=== PATIENT | female | born 1955 | race Caucasian/White ===

== ENCOUNTER 2016-05-01 08:54 | Day surgery (SDC) | payer MEDICARE ==
[~2016-05-01] VITALS: Ht 157.5 cm; Wt 149.7 kg
[~2016-05-01 08:54] MED LIST: ASCO100083 PO; B CO1CAP PO; BIOTIN PO; CALC-671 PO; CELE200C PO; CHOL100061 PO; DIGO250T PO; FISH400C PO; FURO40TA PO; GLUC-113 PO; HYDR-3816 PO; LISI10TA2 PO; METF500T8 PO; MULT-874 PO; POTA20TA15 PO; PRAV40TA PO; TEMA30CA PO; VITA400T9 PO; WARF5TAB6 PO
[2016-05-01] MEDS ORDERED: ceFAZolin 2 GM/50 ML NS 50 ML IV ONE (09:10)
[2016-05-01 09:24] LABS: MEAN PLATELET VOLUME 10.7 FL (7.4-10.4); RED BLOOD COUNT 5.12 10^6/uL (4.35-5.85); RED CELL DISTRIBUTION WIDTH 14.7 % (10.0-14.5); WHITE BLOOD COUNT 8.4 10^3/uL (4.3-11.0)
[2016-05-01] MEDS ORDERED: CATHETER FLUSH 10 ML SYR IV PRN (09:30)
[2016-05-01] MEDS ORDERED: ceFAZolin 2 GM/NS 50 ML IV ONE (09:30)
[2016-05-01 09:45] LABS: ALANINE AMINOTRANSFERASE 23 U/L (0-55); ALBUMIN 4.1 G/DL (3.2-4.5); ANION GAP 11 MMOL/L (5-14); ASPARTATE AMINO TRANSFERASE 24 U/L (5-34); BILIRUBIN,TOTAL 1.4 MG/DL (0.1-1.0); BLOOD UREA NITROGEN 25 MG/DL (7-18); BUN/CREATININE RATIO 31; CALCIUM 9.5 MG/DL (8.5-10.1); CARBON DIOXIDE 24 MMOL/L (21-32); CHLORIDE 105 MMOL/L (98-107); CHOLESTEROL 198 MG/DL (< 200); CREATININE SERUM 0.81 MG/DL (0.60-1.30); DIRECT LDL 147 MG/DL (1-129); GFR ESTIMATED > 60; GLUCOSE 103 MG/DL (70-105); POTASSIUM 4.4 MMOL/L (3.6-5.0); SODIUM 140 MMOL/L (135-145); TRIGLYCERIDES 149 MG/DL (<150); VLDL CHOLESTEROL 30 MG/DL (5-40)
[2016-05-01] MEDS ORDERED: MONT10TA21 PO (09:58)
[2016-05-01] MEDS ORDERED: ASPI-808 PO (09:58)
[2016-05-01] MEDS ORDERED: CARV6.25 PO (09:58)
--- NOTE | 2016-05-01 09:58 | Progress Note-Pre Operative ---
Pre-Operative Progress Note H&P Reviewed The H&P was reviewed, patient examined and no changes noted. Date H&P Reviewed: May 01, 2016 Time H&P Reviewed: 09:58 Pre-Operative Diagnosis: abscess right cheek AISHWARYA YUSUF MD May 01, 2016 9:58 am
[2016-05-01] MEDS ORDERED: LACTATED RINGERS 1,000 ML IV PRN ×3 (09:59→10:43)
[2016-05-01 10:02] VITALS: BP 140/83
[2016-05-01 10:05] LABS: THYROID STIMULATING HORMONE 1.44 UIU/ML (0.35-4.94)
[2016-05-01] MEDS ORDERED: BUP/EPI 0.25% 1:200,000 (MARCAINE) 30 ML VIAL ONE (10:10)
[2016-05-01] MEDS ORDERED: proPOfol 200 MG/20 ML (DIPRIVAN) VIAL IV ONE (10:12)
[2016-05-01] MEDS ORDERED: LACTATED RINGERS 1,000 ML IV ONE (10:12)
[2016-05-01] MEDS ORDERED: MIDAZOLAM 2 MG/2 ML (VERSED) VIAL ONE (10:12)
--- NOTE | 2016-05-01 10:52 | Progress Note-Post Operative ---
Post-Operative Progess Note Pre-Operative Diagnosis ABSCESS RIGHT CHEEK Post-Operative Diagnosis same Post-Op Procedure Note Date of Procedure: May 01, 2016 Name of Procedure: incision and drainage Anesthesia Type sedation AISHWARYA YUSUF MD May 01, 2016 10:52 am
[2016-05-01] MEDS ORDERED: TRAM50TA2 PO (10:53)
[2016-05-01] MEDS ORDERED: SULF1TAB35 PO (10:54)
--- NOTE | 2016-05-01 10:55 | Discharge Inst-Simple/Standard ---
Discharge Inst-Standard Discharge Medications New, Converted or Re-Newed RX: RX on Chart Patient Instructions/Follow Up Plan of Care/Instructions/FU: change dressing with Adaptic and 4 x 4 daily. Follow-up with my nurse in 10 days Activity as Tolerated: Yes Discharge Diet: No Restrictions AISHWARYA YUSUF MD May 01, 2016 10:54 am
[2016-05-01] MEDS ORDERED: morphine INJ 10 MG/ML 1ML (SYR OR VIAL) ONE (10:59)
[2016-05-01] MEDS ORDERED: morphine INJ 10 MG/ML 1ML (SYR OR VIAL) IV PRN (11:00)
[2016-05-01] MEDS ORDERED: ONDANSETRON 4 MG/2 ML (SDV) Z0FRAN IV ONE (11:00)
[2016-05-01] MEDS ORDERED: diphenhydrAMINE 50 MG/ML INJ (BENADRYL) ONE (11:09)
[2016-05-01] MEDS ORDERED: diphenhydrAMINE 50 MG/ML INJ (BENADRYL) IVP ONE (11:30)
[2016-05-01 11:40] VITALS: BP 107/64
[2016-05-01 12:10] VITALS: BP 126/69
[2016-05-01 12:40] VITALS: BP 117/65
--- NOTE | 2016-05-02 10:25 | OPERATIVE REPORT ---
PROCEDURE PHYSICIAN: AISHWARYA YUSUF DATE OF PROCEDURE: 05/01/2016 PREOPERATIVE DIAGNOSIS: 2 cm abscess right cheek POSTOPERATIVE DIAGNOSIS: 2 cm abscess right cheek OPERATION: Incision and drainage of abscess right cheek. SURGEON: Mane ANESTHESIA: Sedation. BLOOD LOSS: Minimal. FLUIDS: 300 mL of crystalloids. TYPE OF WOUND: Type IV (dirty wound) INDICATION FOR THE PROCEDURE: This lady presented with an acute abscess over the right facial cheek requiring incision and drainage. An informed consent was obtained after reviewing the procedure and the possibility of recurrence and further abscess formation. DESCRIPTION OF PROCEDURE: She was placed supine on the operative table and our RESPOOLER administered sedation. 2 grams of Ancef were administered intravenously. After adequate antiseptic preparation, a 2 cm incision was made and the abscess evacuated. Hemostasis was achieved using cautery. The cavity was irrigated with saline. A nonadherent dressing was then applied. She tolerated the procedure well and was taken back to the nursing area in a stable condition. Job ID: [id number] Dictated Date: 05/01/2016 10:50:00 Certified Orthotist Practice Manager Date: 05/02/2016 10:20:35 / ellen
== END 2016-05-01 13:05 | disposition home or self-care (01) ==
LOC: SDC 08:54
PROVIDERS: ATTEND Surgery
DX: L02.01 Cutaneous abscess of face (principal); Z11.2 Encounter for screening for other bacterial diseases; I10 Essential (primary) hypertension; E78.5 Hyperlipidemia, unspecified; R53.83 Other fatigue; R73.9 Hyperglycemia, unspecified; J44.9 Chronic obstructive pulmonary disease, unspecified; Z79.899 Other long term (current) drug therapy
CPT/HCPCS: 36415; 80053; 80061; 83036; 84439; 84443; 85027; 87081

== ENCOUNTER → 2016-10-31 | Outpatient (CLI) | payer MEDICARE ==
[~2016-10-31] MED LIST changes: +ASPI-808 PO; +CARV6.25 PO; +MONT10TA21 PO; +SULF1TAB35 PO; +TRAM50TA2 PO
[2016-10-31 16:10] LABS: BASOPHILS % (AUTO) 0 % (0-10); EOSINOPHILS # (AUTO) 0.1 10^3/uL (0.0-0.3); EOSINOPHILS % (AUTO) 1 % (0-10); LYMPHOCYTES # (AUTO) 1.9 X 10^3 (1.0-4.0); LYMPHOCYTES % (AUTO) 20 % (12-44); MEAN CORPUSCULAR HEMOGLOBIN 30 PG (25-34); MEAN CORPUSCULAR HGB CONC 30 G/DL (32-36); MEAN CORPUSCULAR VOLUME 100 FL (80-99); MEAN PLATELET VOLUME 10.9 FL (7.4-10.4); MONOCYTES # (AUTO) 0.6 X 10^3 (0.0-1.0); MONOCYTES % (AUTO) 7 % (0-12); NEUTROPHILS # (AUTO) 6.8 X 10^3 (1.8-7.8); NEUTROPHILS % (AUTO) 72 % (42-75); PLATELET COUNT 184 10^3/uL (130-400); RED BLOOD COUNT 5.08 10^6/uL (4.35-5.85); RED CELL DISTRIBUTION WIDTH 14.7 % (10.0-14.5); WHITE BLOOD COUNT 9.5 10^3/uL (4.3-11.0)
[2016-10-31 16:35] LABS: ALANINE AMINOTRANSFERASE 16 U/L (0-55); ALBUMIN 3.8 GM/DL (3.2-4.5); ANION GAP 8 MMOL/L (5-14); ASPARTATE AMINO TRANSFERASE 17 U/L (5-34); BILIRUBIN,TOTAL 1.9 MG/DL (0.1-1.0); BLOOD UREA NITROGEN 18 MG/DL (7-18); BUN/CREATININE RATIO 23; CALCIUM 9.5 MG/DL (8.5-10.1); CARBON DIOXIDE 30 MMOL/L (21-32); CHLORIDE 104 MMOL/L (98-107); GFR ESTIMATED > 60; GLUCOSE 88 MG/DL (70-105); POTASSIUM 4.5 MMOL/L (3.6-5.0); SODIUM 142 MMOL/L (135-145); TOTAL PROTEIN 7.5 GM/DL (6.4-8.2)
[2016-10-31 16:36] LABS: CHOLESTEROL 207 MG/DL (< 200); DIRECT LDL 170 MG/DL (1-129); TRIGLYCERIDES 144 MG/DL (<150); VLDL CHOLESTEROL 29 MG/DL (5-40)
[2016-10-31 16:57] LABS: THYROID STIMULATING HORMONE 2.62 UIU/ML (0.35-4.94)
== END ==
LOC: LAB 15:48
PROVIDERS: ATTEND Family Medicine
DX: I48.0 Paroxysmal atrial fibrillation (principal); R53.83 Other fatigue; J44.9 Chronic obstructive pulmonary disease, unspecified; I27.2 Other secondary pulmonary hypertension
CPT/HCPCS: 36415; 80053; 80061; 84439; 84443; 85025

== ENCOUNTER 2017-08-11 17:09 | Inpatient (IN) | payer MEDICARE ==
[~2017-08-11] VITALS: Ht 160 cm; Wt 156.9 kg
--- OUTSIDE RECORDS SUMMARY | 2017-08-11 17:15 | XMS REPORT | CCD ---
Author Author ANISH OWEN LESELYYeimi Organization Unknown Address [address] [place], [place] [address] Care Team Providers Care Maid Housekeeper Name Role Phone LYNDONVILLE ER, CHRISTIANO DO Attphys LYNDONVILLE ER, CHRISTIANO DO Prisurg Vital Signs Unknown or Not Available. Allergies Allergy Code Allergy Type Reaction Status WELLBUTRIN 11139 Drug allergy Active Procedures Procedure Code Procedure Type Date CX CHEST [address] 03/30/2015 TYPE AND Rh 19154260 SNOMED CT 03/30/2015 .BB FFP 966320445 SNOMED CT 03/30/2015 ^CBC W/AUTO DIFF 3078473 SNOMED CT 03/30/2015 UA W/MICRO C&S IF IND 090736004 SNOMED CT 03/30/[address] 03/30/2015 C REACTIVE PROTEIN 81615528 SNOMED CT 03/30/[address] 03/30/[address] 03/30/2015 CULTURE BLOOD 82838521 SNOMED CT 03/30/2015 CULTURE BLOOD 67311323 SNOMED CT 03/30/2015 COMPREHENSIVE METABOLIC PANEL 863328403 SNOMED CT 2015 CBC W/ AUTO DIFF (RFLX MAN DIFF IF IND) 6020468 SNOMED CT 03/30/2015 History of Immunizations Immunization Code Date Influenza, seasonal, injectable 141 12/17/2010 Problems Unknown or Not Available. Results COMPREHENSIVE METABOLIC PANEL - Collect Date/Time: 03/30/2015 18:40 Test Name Code Test Result Test Units Test Ref Range GLUCOSE 2345-7 110 MG/DL L=70 H=100 SODIUM 2951-2 144 MEQ/L L=135 H=148 POTASSIUM 2823-3 3.7 MEQ/L L=3.5 H=5.3 CHLORIDE 2075-0 103 MEQ/L L=96 H=110 CO2 2028-9 28 MEQ/L L=22 H=29 BUN 3094-0 15 MG/DL L=8 H=22 CREATININE 2160-0 0.7 MG/DL L=0.6 H=1.6 SGOT/AST 1920-8 16 IU/L L=10 H=40 SGPT/ALT 1742-6 15 IU/L L=8 H=54 ALK PHOS 6768-6 84 IU/L L=35 H=115 TOTAL PROTEIN 2885-2 6.9 G/DL L=5.5 H=8.5 ALBUMIN 1751-7 3.8 G/DL L=3.1 H=5.4 TOTAL BILI 1975-2 2.3 MG/DL L=0.0 H=1.5 CALCIUM 02979-7 9.1 MG/DL L=8.2 H=10.6 AGE 60 yrs GFR NonAA 85 GFR AA 103 eGFR >60 N/A eGFR AA* >60 N/A LIPASE - Collect Date/Time: 03/30/2015 18:40 Test Name Code Test Result Test Units Test Ref Range LIPASE 3040-3 16 U/L L=8 H=78 CBC W/ AUTO DIFF (RFLX MAN DIFF IF IND) - Collect Date/Time: 03/30/2015 18:40 Test Name Code Test Result Test Units Test Ref Range WBC 68066-5 9.2 TH/CMM L=4.5 H=10.8 RBC 789-8 4.16 ML/CMM L=4.20 H=5.40 HGB 718-7 13.1 G/DL L=12.0 H=16.0 HCT 4544-3 42.8 % L=37.0 H=47.0 MCV 103 FL L=81 H=99 MCH 31.5 PG L=27.0 H=33.0 MCHC 30.6 G/DL L=31.0 H=36.0 RDW SD 53 FL L=36 H=50 RDW CV 14.5 % L=0.0 H=14.8 MPV 11.1 FL L=9.3 H=12.5 PLT 777-3 234 TH/CMM L=130 H=440 NRBC# 0.00 TH/CMM L=0.00 H=0.00 NRBC% 0.0 /100WBC L=0.0 H=2.0 %NEUT 75.1 % %LYMP 18.1 % %MONO 5.7 % %EOS 0.9 % %BASO 0.2 % #NEUT 6.87 TH/CMM L=2.10 H=8.20 #LYMP 1.66 TH/CMM L=0.90 H=5.20 #MONO 0.52 TH/CMM L=0.16 H=1.00 #EOS 0.08 TH/CMM L=0.00 H=0.80 #BASO 0.02 TH/CMM L=0.00 H=0.20 MANUAL DIFF NOT IND N/A PT/PTT - Collect Date/Time: 03/30/2015 18:40 Test Name Code Test Result Test Units Test Ref Range PROTIME 14677-5 >150.0 SEC L=9.9 H=11.9 INR 14.6 PTT 3173-2 95.5 SEC L=22.2 H=37.2 UA W/MICRO C&S IF IND - Collect Date/Time: 03/30/2015 19:05 Test Name Code Test Result Test Units Test Ref Range COLOR YELLOW N/A NL: YELLOW APPEARANCE CLEAR N/A NL: CLEAR SPEC GRAV 1.015 N/A NL: 1.002 - 1.022 pH 5.5 N/A NL: 5 - 9 PROTEIN NEGATIVE N/A NL: NEGATIVE mg/dl GLUCOSE NEGATIVE N/A NL: NEGATIVE mg/dl KETONE NEGATIVE N/A NL: NEGATIVE mg/dl BILIRUBIN NEGATIVE N/A NL: NEGATIVE BLOOD MODERATE N/A NL: NEGATIVE NITRITE NEGATIVE N/A NL: NEGATIVE LEUK SCREEN NEGATIVE N/A NL: NEGATIVE WBC/HPF 0-5 N/A NL: NEGATIVE RBC/HPF 5-10 N/A NL: NEGATIVE CASTS/LPF NEGATIVE N/A NL: NEGATIVE CRYSTALS TRACE AMORPH N/A NL: NEGATIVE MUCOUS THRDS NEGATIVE N/A NL: NEGATIVE BACTERIA FEW N/A NL: NEGATIVE EPITH CELLS 3+++ SQUAMOUS N/A NL: NEGATIVE TRICHOMONAS NEGATIVE N/A NL: NEGATIVE YEAST NEGATIVE N/A NL: NEGATIVE CULT SET UP? NO N/A .BB FFP - Collect Date/Time: 03/30/2015 20:00 Test Name Code Test Result Test Units Test Ref Range Unit Blood Type A Pos N/A Unit Number [id number] FFP CPD N/A Status Information Ready N/A Product Identification FFP N/A TYPE AND Rh - Collect Date/Time: 03/30/2015 20:00 Test Name Code Test Result Test Units Test Ref Range ABO/Rh Type A Positive N/A BNP - Collect Date/Time: 03/30/2015 18:40 Test Name Code Test Result Test Units Test Ref Range BNP 78297-8 22 PG/ML L=0 H=100 C REACTIVE PROTEIN - Collect Date/Time: 03/30/2015 18:40 Test Name Code Test Result Test Units Test Ref Range C REACTIVE PROTEIN 1988-5 4.3 MG/DL L=0.0 H= 1.0 LACTIC ACID - Collect Date/Time: 03/30/2015 18:40 Test Name Code Test Result Test Units Test Ref Range LACTIC ACID 2524-7 2.0 mmol/L L=0.5 H=1.6 Active Medications Unknown or Not Available. Medications Administered During Visit Unknown or Not Available. Encounters Encounter Diagnosis Diagnosis Code Start Date Abnormal coagulation profile R791 03/30/2015 Social History Smoking Status Code Start Date End Date Current every day smoker [id number] Patient Decision Aids Unknown or Not Available. Discharge Instructions You were admitted to [facility] on 03/30/2015 with a principal diagnosis of Abnormal coagulation profile. You were discharged from [facility] on 03/30/2015. Should you have any questions prior to discharge, please contact a member of your healthcare team. If you have left the hospital and have any questions, please contact your primary care physician. Chief Complaint and Reason For Visit Chief Complaint Date of Onset PRODUCTIVE BLOOD Function Status Unknown or Not Available. Plan of Care Unknown or Not Available. Referral/Transition of Care Unknown or Not Available.
--- OUTSIDE RECORDS SUMMARY | 2017-08-11 17:15 | XMS REPORT | CCD ---
Author Author CHENG COYLE Organization Unknown Address [address] [place], [place] [address] Care Team Providers Care Tax Professional Name Role Phone KIMBERLY HERNANDEZ MD Attphys Vital Signs Unknown or Not Available. Allergies Allergy Code Allergy Type Reaction Status WELLBUTRIN 80372 Drug allergy Active Procedures Procedure Code Procedure Type Date CATARAC PHACOEMULS ASPIR 1341 ICD-9 CM, Volume 3 2014 INSERT LENS AT CATAR EXT 1371 ICD-9 CM, Volume 3 2014 History of Immunizations Immunization Code Date Influenza, seasonal, injectable 141 12/17/2010 Problems Unknown or Not Available. Results Unknown or Not Available. Active Medications Unknown or Not Available. Medications Administered During Visit Unknown or Not Available. Encounters Encounter Diagnosis Diagnosis Code Start Date CATARACT NEC 3668 09/21/2014 Social History Smoking Status Code Start Date End Date Current every day smoker [id number] Patient Decision Aids Patient Decision Aid MARY CATARACT DISMISSAL INSTRUCTIONS Discharge Instructions You were admitted to [facility] on 09/21/2014 with a principal diagnosis of CATARACT NEC. You had the following procedures done: CATARACT SURG W/IOL 1 STAGE INSERT LENS AT CATAR EXT You were discharged from [facility] on 09/21/2014. Should you have any questions prior to discharge, please contact a member of your healthcare team. If you have left the hospital and have any questions, please contact your primary care physician. Chief Complaint and Reason For Visit Chief Complaint Date of Onset EYE CATARACT RT Function Status Unknown or Not Available. Plan of Care Unknown or Not Available. Referral/Transition of Care Unknown or Not Available.
[2017-08-11] MEDS ORDERED: RT-ALBUTEROL/IPRATROPIUM 3 ML (DUONEB) VIAL ONE (17:23)
--- NOTE | 2017-08-11 17:27 | ED General ---
General Stated Complaint: SOB, CELLULITIS Source of Information: Patient Exam Limitations: No Limitations History of Present Illness Date Seen by Provider: Aug 11, 2017 Time Seen by Provider: 17:24 Initial Comments to ER per private vehicle with reports of cellulitis and shortness of breath. She is a patient of Dr. Roach. she also follows with Dr. Barrios from pulmonology in [place] and a professor of biology in [place] as well.She reports cellulitis to the back of the right leg. she also reports increasing shortness of breath. She wears oxygen at 4 L per nasal cannula at home. She states that she was cardioverted by her professor of biology in [place] for intermittent atrial fibrillation last week. She is on Eliquis twice daily. This morning and has not had this evening's dose. she was recently switched to Eliquis from [facility]. She reports coughing up blood today so she called her professor of biology who told her to stop the Eliquis. Timing/Duration: 2-3 Days Severity: Moderate Allergies and Home Medications Allergies Coded Allergies: bupropion (Unverified Allergy, Unknown, RASH, 04/04/14) Home Medications Aspirin 325 Mg Tablet, 325 MG PO DAILY, (Reported) Carvedilol 6.25 Mg Tablet, 6.25 MG PO BID, (Reported) Montelukast Sodium 10 Mg Tablet, 10 MG PO DAILY, (Reported) Sulfamethoxazole/Trimethoprim 1 Each Tablet, 1 EACH PO Q12H Prescribed by: AISHWARYA YUSUF on 05/01/16 1054 Tramadol HCl 50 Mg Tablet, 50 MG PO Q12H PRN for PAIN Prescribed by: AISHWARYA YUSUF on 05/01/16 1053 Patient Home Medication List Home Medication List Reviewed: Yes Review of Systems Constitutional: see HPI EENTM: see HPI Respiratory: no symptoms reported Cardiovascular: no symptoms reported Genitourinary: no symptoms reported Musculoskeletal: no symptoms reported Skin: no symptoms reported Psychiatric/Neurological: No Symptoms Reported Hematologic/Lymphatic: No Symptoms Reported Past Wzlgbeh-Fkqwzx-Zotzbs Hx Patient Social History Type Used: Cigarettes, Electronic/Vapor Former Smoker, Quit: May 08, 2012 Recent Foreign Travel: No Contact w/Someone Who Travel: No Recent Hopitalizations: No Immunizations Up To Date Tetanus Booster (TDap): Unknown Date of Pneumonia Vaccine: Jan 09, 2016 Date of Influenza Vaccine: Jan 09, 2016 Seasonal Allergies Seasonal Allergies: Yes Past Medical History Asthma, COPD Reproductive Disorders: No Loss of Vision: Bilateral Hearing Impairment: Denies Physical Exam Vital Signs Vital Signs - First Documented 08/11/17 08/11/17 17:26 17:40 Temp 96.6 Pulse 55 Resp 35 B/P (MAP) 132/77 (95) Pulse Ox 97 O2 Delivery Nasal Cannula O2 Flow Rate 50.00 Capillary Refill : General Appearance: No Apparent Distress, Moderate Distress, Obese, Other ( oxygen saturation 70% onbaseline 4 L upon arrival to ER.RT was summoned the BiPAP was initiated) HEENT: PERRL/EOMI, TMs Normal Neck: Full Range of Motion, Normal Inspection Respiratory: Normal Breath Sounds, No Accessory Muscle Use, No Respiratory Distress Cardiovascular: Regular Rate, Rhythm, Normal Peripheral Pulses Gastrointestinal: Normal Bowel Sounds, Non Tender, Soft Extremity: Normal Capillary Refill, Normal Inspection, Other (to the posterior right calf there is a home sized area is open with some drainage. 5-10 cm of surrounding erythema around this.) Neurologic/Psychiatric: Alert, Oriented x3 Skin: Normal Color, Warm/Dry Focused Exam Lactate Level 08/11/17 17:27: Lactic Acid Level 1.08 Lactic Acid Level Progress/Results/Core Measures Suspected Sepsis SIRS Temperature: Pulse: Respiratory Rate: Laboratory Tests 08/11/17 17:27: White Blood Count 7.9 Blood Pressure / Mean: 08/11/17 17:27: Lactic Acid Level 1.08 Laboratory Tests 08/11/17 17:27: Creatinine 0.66, Platelet Count 152, Total Bilirubin 2.8H Results/Orders Lab Results Laboratory Tests Test 08/11/17 17:27 08/11/17 19:25 Range/Units White Blood Count 7.9 4.3-11.0 10^3/uL Red Blood Count 4.38 4.35-5.85 10^6/uL Hemoglobin 14.4 11.5-16.0 G/DL Hematocrit 47 35-52 % Mean Corpuscular Volume 106 H 80-99 FL Mean Corpuscular Hemoglobin 33 25-34 PG Mean Corpuscular Hemoglobin Concent 31 L 32-36 G/DL Red Cell Distribution Width 16.0 H 10.0-14.5 % Platelet Count 152 130-400 10^3/uL Mean Platelet Volume 11.1 H 7.4-10.4 FL Neutrophils (%) (Auto) 74 42-75 % Lymphocytes (%) (Auto) 17 12-44 % Monocytes (%) (Auto) 8 0-12 % Eosinophils (%) (Auto) 1 0-10 % Basophils (%) (Auto) 0 0-10 % Neutrophils # (Auto) 5.9 1.8-7.8 X 10^3 Lymphocytes # (Auto) 1.3 1.0-4.0 X 10^3 Monocytes # (Auto) 0.6 0.0-1.0 X 10^3 Eosinophils # (Auto) 0.1 0.0-0.3 10^3/uL Basophils # (Auto) 0.0 0.0-0.1 10^3/uL Sodium Level 147 H 135-145 MMOL/L Potassium Level 4.0 3.6-5.0 MMOL/L Chloride Level 103 98-107 MMOL/L Carbon Dioxide Level 34 H 21-32 MMOL/L Anion Gap 10 5-14 MMOL/L Blood Urea Nitrogen 18 7-18 MG/DL Creatinine 0.66 0.60-1.30 MG/DL Estimat Glomerular Filtration Rate > 60 BUN/Creatinine Ratio 27 Glucose Level 101 70-105 MG/DL Lactic Acid Level 1.08 0.50-2.00 MMOL/L Calcium Level 9.1 8.5-10.1 MG/DL Total Bilirubin 2.8 H 0.1-1.0 MG/DL Aspartate Amino Transf (AST/SGOT) 20 5-34 U/L Alanine Aminotransferase (ALT/SGPT) 26 0-55 U/L Alkaline Phosphatase 69 40-136 U/L B-Type Natriuretic Peptide 1142.4 H <100.0 PG/ML Total Protein 6.6 6.4-8.2 GM/DL Albumin 3.4 3.2-4.5 GM/DL Urine Color YELLOW Urine Clarity CLEAR Urine pH 6 5-9 Urine Specific [place] 1.020 1.016-1.022 Urine Protein 1+ H NEGATIVE Urine Glucose (UA) NEGATIVE NEGATIVE Urine Ketones NEGATIVE NEGATIVE Urine Nitrite NEGATIVE NEGATIVE Urine Bilirubin NEGATIVE NEGATIVE Urine Urobilinogen 1 NORMAL MG/DL Urine Leukocyte Esterase 1+ H NEGATIVE Urine RBC (Auto) 1+ H NEGATIVE Urine RBC RARE /HPF Urine WBC 0-2 /HPF Urine Squamous Epithelial Cells 2-5 /HPF Urine Crystals PRESENT H /LPF Urine Calcium Oxalate Crystals FEW H /LPF Urine Bacteria TRACE /HPF Urine Casts NONE /LPF Urine Mucus LARGE H /LPF Urine Culture Indicated NO My Orders Orders - ATILIO LOPEZ APRN Cbc With Automated Diff (08/11/17 17:21) Comprehensive Metabolic Panel (08/11/17 17:21) Blood Culture (08/11/17 17:21) Lactic Acid Analyzer (08/11/17 17:21) Ua Culture If Indicated (08/11/17 17:21) Chest 1 View, Ap/Pa Only (08/11/17 17:21) Albuterol/Ipra Inhalation Soln (Duoneb I (08/11/17 17:30) Svn Small Volume Nebulizer (08/11/17 17:21) Arterial Blood Gas (08/11/17 17:21) BNP (08/11/17 17:21) Ekg Tracing (08/11/17 17:21) Furosemide Injection (Lasix Injection) (08/11/17 19:00) Us Venous Lower Ext Janusz (08/11/17 18:56) Ct Angio Chest W (08/11/17 19:01) Iohexol Injection (Omnipaque 350 Mg/Ml 1 (08/11/17 19:45) Ns (Ivpb) (Sodium Chloride 0.9% Ivpb Bag (08/11/17 19:45) Piperacillin Sodium/Tazobactam (Zosyn Vi (08/11/17 20:30) Troponin I (08/11/17 21:05) Medications Given in ED Current Medications Medications Dose Ordered Sig/Taina Route Start Time Stop Time Status Last Admin Dose Admin Furosemide 40 mg ONCE ONCE IVP 08/11/17 19:00 08/11/17 19:01 DC 08/11/17 19:05 40 MG Piperacillin Sod/ Tazobactam Sod 4.5 gm/Dextrose 100 ml @ 200 mls/hr ONCE ONCE IV 08/11/17 20:30 08/11/17 20:59 DC 08/11/17 21:08 200 MLS/HR Vital Signs/I&O 08/11/17 08/11/17 17:26 17:40 Temp 96.6 Pulse 55 95 Resp 35 26 B/P (MAP) 132/77 (95) Pulse Ox 97 70 O2 Delivery Nasal Cannula O2 Flow Rate 50.00 4.00 Capillary Refill : Diagnostic Imaging Diagonstic Imaging: Xray Plain Films/CT/US/NM/MRI: chest Comments NAME: PITO EDUARDO [facility] REC#: [id number] PT STATUS: REG ER : 1955 PHYSICIAN: ATILIO LOPEZ APRN ADMIT DATE: 08/11/17/ER Draft Date of Exam:08/11/17 CHEST 1 VIEW, AP/PA ONLY INDICATION: Shortness of breath. TECHNIQUE: Single view chest 5:57 PM. CORRELATION STUDY: 06/29/2015 FINDINGS: Heart size is enlarged. The mediastinum is prominent. Vascularity is overall slightly prominent. Abnormal parenchymal density in the right hilum and infrahilar region may be reflective of an area of infiltrate. IMPRESSION: 1. Suspect for infiltrate or asymmetric edema throughout the right infrahilar region. Cardiac enlargement. Would recommend short-term follow-up 2-view chest imaging for followup assessment. These findings are a change from the prior study. Mass lesion and/or adenopathy not excluded. Dictated on workstation # [id number] Dict: 08/11/17 180 Trans: 08/11/17 1820 [facility] [id number] Interpreted by: HAYLEE CERVANTES DO Electronically signed by: NAME: PITO EDUARDO [facility] REC#: [id number] PT STATUS: REG ER : 1955 PHYSICIAN: ATILIO LOPEZ APRN ADMIT DATE: 08/11/17/ER Draft Date of Exam:08/11/17 US VENOUS LOWER EXT JANUSZ INDICATION: Shortness of breath. Redness and swelling of right leg. FINDINGS: Color Doppler imaging shows normal color flow enhancement from the external iliac vein bilaterally throughout the ankles. Detail is limited due to large body habitus. Calf compression does show augmentation of flow at the popliteal level with Doppler sampling. No evidence of popliteal cyst. IMPRESSION: Limited exam due to body habitus though no evidence of venous thrombosis demonstrated in the lower extremities. Dictated on workstation # [id number] Dict: 08/11/172053 Trans: 08/11/172105 [facility] [id number] Interpreted by: LEXA DO MD Electronically signed by: NAME: PITO EDUARDO [facility] REC#: [id number] PT STATUS: REG ER : 1955 PHYSICIAN: ATILIO LOPEZ APRN ADMIT DATE: 08/11/17/ER Draft Date of Exam:08/11/17 CT ANGIO CHEST W PROCEDURE: CT angiography of the chest with contrast. TECHNIQUE: Multiple contiguous axial images were obtained through the chest after uneventful bolus administration of intravenous contrast. Reconstructed CTA MIP acquisitions were also performed. INDICATION: Shortness of breath. Patient on CPAP. FINDINGS: Good opacification of the aorta and pulmonary arteries. No evidence of aortic aneurysm or dissection. Pulmonary artery show no filling defects to indicate pulmonary emboli. There is a small pleural effusion on the right with mild right basilar atelectasis. There is also atelectasis in the right middle lobe. Mild underlying interstitial lung disease is present. Could not exclude mild pulmonary edema. There is cardiomegaly. No mediastinal or hilar adenopathy of pathologic size. IMPRESSION: 1. There are no findings to suggest pulmonary emboli. 2. Small pleural effusion with bilateral interstitial lung disease could represent underlying pulmonary edema. 3. Atelectasis, right lower lobe and right middle lobe. Dictated on workstation # [id number] Dict: 08/11/172139 Trans: 08/11/172144 [facility] [id number] Interpreted by: LEXA DO MD Electronically signed by: Departure Communication (Admissions) Time/Spoke to Admitting Phy: 20:[address] Roach. She agrees to admit, consult cardiology for the elevated BNP. I have not done a CT angiogram of the chestyet, but given the complaints of dyspnea and hemoptysis I'll do that now. However, she has been on Eliquis for the past few weeks after stopping the Xarelto it would be unlikely to be a Pulmonary embolism. Time/Spoke to Consulting Phy: 21:[address] Pham. He agrees to consult. I've given Lasix40 mg IV,Larkin catheter has been started, she remains on the BiPAP and breathing much more easily area settings are 16/8, 60% FiO2. Much less distress and she is requesting a Pepsi and a meal tray. 2147-initially told Dr. Roach I would place the patient in the ICU. However we do not have any ICU beds according to fish housekeeper so I did give the okay to place the patient on the medical floor. She is still on the bipap, alert and oriented. Impression Primary Impression: Cellulitis of right leg Additional Impression: CHF (congestive heart failure) Disposition: ADMITTED INPATIENT Condition: Stable Admissions Decision to Admit Reason: Admit from ER (General) Decision to Admit/Date: Aug 11, 2017 Time/Decision to Admit Time: 21:14 Departure-Patient Inst. Referrals: DEANN ROACH DO (PCP/Family) Primary Care Physician ATILIO LOPEZ APRN Aug 11, 2017 17:27
[2017-08-11] MEDS ORDERED: RT-ALBUTEROL/IPRATROPIUM 3 ML (DUONEB) VIAL INH ONE (17:30)
[2017-08-11 17:38] LABS: BASOPHILS % (AUTO) 0 % (0-10); EOSINOPHILS # (AUTO) 0.1 10^3/uL (0.0-0.3); EOSINOPHILS % (AUTO) 1 % (0-10); HEMATOCRIT 47 % (35-52); HEMOGLOBIN 14.4 G/DL (11.5-16.0); LYMPHOCYTES # (AUTO) 1.3 X 10^3 (1.0-4.0); LYMPHOCYTES % (AUTO) 17 % (12-44); MEAN CORPUSCULAR HEMOGLOBIN 33 PG (25-34); MEAN CORPUSCULAR HGB CONC 31 G/DL (32-36); MEAN CORPUSCULAR VOLUME 106 FL (80-99); MEAN PLATELET VOLUME 11.1 FL (7.4-10.4); MONOCYTES # (AUTO) 0.6 X 10^3 (0.0-1.0); MONOCYTES % (AUTO) 8 % (0-12); NEUTROPHILS # (AUTO) 5.9 X 10^3 (1.8-7.8); NEUTROPHILS % (AUTO) 74 % (42-75); PLATELET COUNT 152 10^3/uL (130-400); RED BLOOD COUNT 4.38 10^6/uL (4.35-5.85); WHITE BLOOD COUNT 7.9 10^3/uL (4.3-11.0)
[2017-08-11 18:03] LABS: ALANINE AMINOTRANSFERASE 26 U/L (0-55); ALBUMIN 3.4 GM/DL (3.2-4.5); ALKALINE PHOSPHATASE 69 U/L (40-136); BILIRUBIN,TOTAL 2.8 MG/DL (0.1-1.0); BUN/CREATININE RATIO 27; CALCIUM 9.1 MG/DL (8.5-10.1); CARBON DIOXIDE 34 MMOL/L (21-32); CHLORIDE 103 MMOL/L (98-107); CREATININE SERUM 0.66 MG/DL (0.60-1.30); GFR ESTIMATED > 60; GLUCOSE 101 MG/DL (70-105); SODIUM 147 MMOL/L (135-145); TOTAL PROTEIN 6.6 GM/DL (6.4-8.2)
--- NOTE | 2017-08-11 18:21 | Diagnostic Imaging Report ---
INDICATION: Shortness of breath. TECHNIQUE: Single view chest 5:57 PM. CORRELATION STUDY: 06/29/2015 FINDINGS: Heart size is enlarged. The mediastinum is prominent. Vascularity is overall slightly prominent. Abnormal parenchymal density in the right hilum and infrahilar region may be reflective of an area of infiltrate. IMPRESSION: 1. Suspect for infiltrate or asymmetric edema throughout the right infrahilar region. Cardiac enlargement. Would recommend short-term follow-up 2-view chest imaging for followup assessment. These findings are a change from the prior study. Mass lesion and/or adenopathy not excluded. Dictated by: Dictated on workstation # [id number]
[2017-08-11] MEDS ORDERED: FUROSEMIDE 40 MG/4 ML INJ (LASIX) IVP ONE (19:00)
[2017-08-11 19:45] LABS: BILIRUBIN,URINE NEGATIVE (NEGATIVE); CLARITY,URINE CLEAR; COLOR,URINE YELLOW; GLUCOSE, URINE (UA) NEGATIVE (NEGATIVE); KETONES,URINE NEGATIVE (NEGATIVE); LEUKOCYTE ESTERASE ,URINE 1+ (NEGATIVE); NITRITE,URINE NEGATIVE (NEGATIVE); PH,URINE 6 (5-9); PROTEIN,URINE 1+ (NEGATIVE); UROBILINOGEN,URINE 1 MG/DL (NORMAL)
[2017-08-11] MEDS ORDERED: IOHEXOL 350 MG/ML 150 ML (OMNIPAQUE 350) VIAL IV ONE (19:45)
[2017-08-11] MEDS ORDERED: NS 100 ML (IVPB) BAG IV ONE (19:45)
[2017-08-11 19:53] LABS: RBC,URINE RARE /HPF
[2017-08-11 19:54] LABS: BACTERIA,URINE TRACE /HPF; CALCIUM OXALATE CRYSTALS,UR FEW /LPF; WBC,URINE 0-2 /HPF
[2017-08-11] MEDS ORDERED: PIPERACILLIN SODIUM/TAZOBACTAM 4.5 GM in D5W 100 ML IVPB 100 ML IV ONE (20:30)
--- NOTE | 2017-08-11 21:07 | Diagnostic Imaging Report ---
INDICATION: Shortness of breath. Redness and swelling of right leg. FINDINGS: Color Doppler imaging shows normal color flow enhancement from the external iliac vein bilaterally throughout the ankles. Detail is limited due to large body habitus. Calf compression does show augmentation of flow at the popliteal level with Doppler sampling. No evidence of popliteal cyst. IMPRESSION: Limited exam due to body habitus though no evidence of venous thrombosis demonstrated in the lower extremities. Dictated by: Dictated on workstation # [id number]
[2017-08-11 21:44] VITALS: BP 136/86
--- NOTE | 2017-08-11 21:45 | Diagnostic Imaging Report ---
PROCEDURE: CT angiography of the chest with contrast. TECHNIQUE: Multiple contiguous axial images were obtained through the chest after uneventful bolus administration of intravenous contrast. Reconstructed CTA MIP acquisitions were also performed. INDICATION: Shortness of breath. Patient on CPAP. FINDINGS: Good opacification of the aorta and pulmonary arteries. No evidence of aortic aneurysm or dissection. Pulmonary artery show no filling defects to indicate pulmonary emboli. There is a small pleural effusion on the right with mild right basilar atelectasis. There is also atelectasis in the right middle lobe. Mild underlying interstitial lung disease is present. Could not exclude mild pulmonary edema. There is cardiomegaly. No mediastinal or hilar adenopathy of pathologic size. IMPRESSION: 1. There are no findings to suggest pulmonary emboli. 2. Small pleural effusion with bilateral interstitial lung disease could represent underlying pulmonary edema. 3. Atelectasis, right lower lobe and right middle lobe. Dictated by: Dictated on workstation # [id number]
--- NOTE | 2017-08-11 21:57 | Consultation-Cardiology ---
HPI-Cardiology Cardiology Consultation Date of Consultation 08/11/17 Date of Admission Time Seen by Provider: 21:51 Indication: shortness of breath HPI 62 years old lady with history of paroxysmal atrial fibrillation, peripheral arterial disease, questionable hypertension and COPD for which she has been using oxygen up to 4 L, obstructive sleep apnea. Recently she had cellulitis which has been worsening, having discomfort and swelling in her legs. She started having increasing shortness of breath. She underwent electrical cardioversion recently by Dr. Licona in [place]. She was intolerant to oral anticoagulation with hemoptysis and GI bleed, underwent extensive workup at [facility]. On admission she was noted to have elevated BNP. She denied any chest pain. Denied any palpitation. Home Medications & Allergies Allergies: Coded Allergies: bupropion (Unverified Allergy, Unknown, RASH, 04/04/14) Home Medication List Reviewed: Yes [id number]-Lftyyv Hx Patient Social History Alcohol Use: Denies Use Recreational Drug Use: No Smoking Status: Former Smoker Type Used: Cigarettes, Electronic/Vapor Recent Foreign Travel: No Recent Infectious Disease Expo: No Recent Hopitalizations: No Immunizations Up To Date Tetanus Booster (TDap): Unknown Date of Pneumonia Vaccine: Jan 09, 2016 Date of Influenza Vaccine: Jan 09, 2016 Past Medical History Past medical history is discussed below Family Medical History Family Medical Hx Noncontributory to her current condition Constitutional: see HPI, malaise, weakness EENTM: see HPI, no symptoms reported Respiratory: see HPI, cough, dyspnea on exertion, hemoptysis, orthopnea, short of breath Cardiovascular: see HPI; No chest pain; edema; No Hx of Intervention; palpitations; No syncope, No vascular heart diseas, No other Gastrointestinal: no symptoms reported, see HPI Genitourinary: see HPI Musculoskeletal: see HPI, back pain, joint pain, muscle pain Skin: see HPI Psychiatric/Neurological: No Symptoms Reported, See HPI Reviewed Test Results Reviewed Test Results Lab Laboratory Tests Test 08/11/17 17:27 08/11/17 19:25 Range/Units White Blood Count 7.9 4.3-11.0 10^3/uL Red Blood Count 4.38 4.35-5.85 10^6/uL Hemoglobin 14.4 11.5-16.0 G/DL Hematocrit 47 35-52 % Mean Corpuscular Volume 106 H 80-99 FL Mean Corpuscular Hemoglobin 33 25-34 PG Mean Corpuscular Hemoglobin Concent 31 L 32-36 G/DL Red Cell Distribution Width 16.0 H 10.0-14.5 % Platelet Count 152 130-400 10^3/uL Mean Platelet Volume 11.1 H 7.4-10.4 FL Neutrophils (%) (Auto) 74 42-75 % Lymphocytes (%) (Auto) 17 12-44 % Monocytes (%) (Auto) 8 0-12 % Eosinophils (%) (Auto) 1 0-10 % Basophils (%) (Auto) 0 0-10 % Neutrophils # (Auto) 5.9 1.8-7.8 X 10^3 Lymphocytes # (Auto) 1.3 1.0-4.0 X 10^3 Monocytes # (Auto) 0.6 0.0-1.0 X 10^3 Eosinophils # (Auto) 0.1 0.0-0.3 10^3/uL Basophils # (Auto) 0.0 0.0-0.1 10^3/uL Sodium Level 147 H 135-145 MMOL/L Potassium Level 4.0 3.6-5.0 MMOL/L Chloride Level 103 98-107 MMOL/L Carbon Dioxide Level 34 H 21-32 MMOL/L Anion Gap 10 5-14 MMOL/L Blood Urea Nitrogen 18 7-18 MG/DL Creatinine 0.66 0.60-1.30 MG/DL Estimat Glomerular Filtration Rate > 60 BUN/Creatinine Ratio 27 Glucose Level 101 70-105 MG/DL Lactic Acid Level 1.08 0.50-2.00 MMOL/L Calcium Level 9.1 8.5-10.1 MG/DL Total Bilirubin 2.8 H 0.1-1.0 MG/DL Aspartate Amino Transf (AST/SGOT) 20 5-34 U/L Alanine Aminotransferase (ALT/SGPT) 26 0-55 U/L Alkaline Phosphatase 69 40-136 U/L B-Type Natriuretic Peptide 1142.4 H <100.0 PG/ML Total Protein 6.6 6.4-8.2 GM/DL Albumin 3.4 3.2-4.5 GM/DL Urine Color YELLOW Urine Clarity CLEAR Urine pH 6 5-9 Urine Specific Blevins 1.020 1.016-1.022 Urine Protein 1+ H NEGATIVE Urine Glucose (UA) NEGATIVE NEGATIVE Urine Ketones NEGATIVE NEGATIVE Urine Nitrite NEGATIVE NEGATIVE Urine Bilirubin NEGATIVE NEGATIVE Urine Urobilinogen 1 NORMAL MG/DL Urine Leukocyte Esterase 1+ H NEGATIVE Urine RBC (Auto) 1+ H NEGATIVE Urine RBC RARE /HPF Urine WBC 0-2 /HPF Urine Squamous Epithelial Cells 2-5 /HPF Urine Crystals PRESENT H /LPF Urine Calcium Oxalate Crystals FEW H /LPF Urine Bacteria TRACE /HPF Urine Casts NONE /LPF Urine Mucus LARGE H /LPF Urine Culture Indicated NO Physical Exam Vital Signs Vital Signs - First Documented 08/11/17 08/11/17 17:26 17:40 Temp 96.6 Pulse 55 Resp 35 B/P (MAP) 132/77 (95) Pulse Ox 97 O2 Delivery Nasal Cannula O2 Flow Rate 50.00 Capillary Refill : Greater Than 3 Seconds General Appearance: WD/WN, Moderate Distress Eyes: Bilateral Eye Normal Inspection, Bilateral Eye PERRL, Bilateral Eye EOMI HEENT: PERRL/EOMI, TMs Normal, Normal ENT Inspection, Pharynx Normal Neck: Full Range of Motion, Normal Inspection, Non Tender, Supple, Carotid Bruit Respiratory: Chest Non Tender, Normal Breath Sounds, No Accessory Muscle Use, No Respiratory Distress, Crackles Cardiovascular: Regular Rate, Rhythm, No Edema, No Gallop, No JVD, No Murmur, Normal Peripheral Pulses Gastrointestinal: Normal Bowel Sounds, No Organomegaly, No Pulsatile Mass, Non Tender, Soft Back: Normal Inspection, No CVA Tenderness, No Vertebral Tenderness Extremity: Normal Capillary Refill, Normal Inspection, Normal Range of Motion, Non Tender, No Calf Tenderness Neurologic/Psychiatric: Alert, Oriented x3, No Motor/Sensory Deficits, Normal Mood/Affect Skin: Normal Color, Warm/Dry, Erythema Lymphatic: No Adenopathy A/P-Cardiology Admission Diagnosis Shortness of breath Acute exacerbation of COPD Paroxysmal atrial fibrillation Cellulitis Assessment/Plan Shortness of breath, acute excess her ratio of COPD, elevated BNP level, no previous history of heart failure, had a recent FELIPA with electrical cardioversion, responded well to diuretics. I'll try to obtain copy of her records from [facility] and Dr. Licona office. Paroxysmal atrial fibrillation, had recent FELIPA with cardioversion. Continue to monitor EKG at this time. Intolerant to oral anticoagulation with hemoptysis, GI bleed. Seen by senior cytotechnologist and gastroenterologists in [facility], underwent extensive workup. Cellulitis, patient is receiving antibiotics, managed by medical team Hypoxemia, has been using oxygen at home. Obstructive sleep apnea, intolerant to C Pap Obesity, BMI 57. History of peripheral arterial disease, underwent intervention by Dr. Rodriguez on her leg after an injury done about 10 years ago. CHANELLE FENG MD Aug 11, 2017 21:57
[2017-08-11] MEDS ORDERED: ACETAMINOPHEN 325 MG TABLET/CAPLET (TYLENOL) PO PRN (23:15)
[2017-08-12] VITALS (7 sets, daily range): BP systolic 125–146; BP diastolic 59–86
[2017-08-12] MEDS ORDERED: RT-ALBUTEROL/IPRATROPIUM 3 ML (DUONEB) VIAL ONE (02:48)
[2017-08-12] MEDS ORDERED: RT-ALBUTEROL/IPRATROPIUM 3 ML (DUONEB) VIAL INH PRN (03:45)
[2017-08-12 06:00] LABS: HEMOGLOBIN 12.6 G/DL (11.5-16.0); MEAN PLATELET VOLUME 11.2 FL (7.4-10.4); RED BLOOD COUNT 3.98 10^6/uL (4.35-5.85); WHITE BLOOD COUNT 5.6 10^3/uL (4.3-11.0)
[2017-08-12] MEDS: FUROSEMIDE 40 MG/4 ML INJ (LASIX) IV SCH (06:04)
[2017-08-12 06:22] LABS: ALANINE AMINOTRANSFERASE 20 U/L (0-55); ALKALINE PHOSPHATASE 57 U/L (40-136); BILIRUBIN,TOTAL 2.6 MG/DL (0.1-1.0); BUN/CREATININE RATIO 21; CALCIUM 8.7 MG/DL (8.5-10.1); CARBON DIOXIDE 37 MMOL/L (21-32); CHLORIDE 98 MMOL/L (98-107); CREATININE SERUM 0.66 MG/DL (0.60-1.30); GFR ESTIMATED > 60; GLUCOSE 74 MG/DL (70-105); POTASSIUM 3.3 MMOL/L (3.6-5.0); SODIUM 147 MMOL/L (135-145); TOTAL PROTEIN 5.5 GM/DL (6.4-8.2)
[2017-08-12] MEDS: RT-ALBUTEROL/IPRATROPIUM 3 ML (DUONEB) VIAL INH SCH ×5 (06:48→22:37)
[2017-08-12] MEDS: HYDROcodone/APAP 7.5 MG/325 MG (LORTAB, LORCET PLUS) TABLET PO PRN (06:52)
[2017-08-12] MEDS ORDERED: ENOXAPARIN 40 MG/0.4 ML (LOVENOX) SYR SC SCH (09:00)
[2017-08-12] MEDS ORDERED: VANCOMYCIN 1 GM/NS 250 ML IVPB IV SCH ×2 (09:00)
--- NOTE | 2017-08-12 09:52 | Diagnostic Imaging Report ---
Indication: Cellulitis and hypoxia with standing. Comparison made with prior examination of 08/11/2017. Findings: There is cardiomegaly. There is some venous congestion. Some bibasilar atelectasis and/or pneumonitis. No pleural effusion or pneumothorax. Mediastinum unremarkable. Impression: Bibasilar subsegmental atelectasis and/or pneumonitis. Cardiomegaly and mild venous congestion. Dictated by: Dictated on workstation # [id number]
[2017-08-12] MEDS ORDERED: CARV6.252 PO (10:30)
[2017-08-12] MEDS ORDERED: MONT10TA24 PO (10:30)
[2017-08-12] MEDS ORDERED: SERT50TA9 PO (10:30)
[2017-08-12] MEDS: ENOXAPARIN 60 MG/0.6 ML (LOVENOX) SYR SC SCH ×2 (10:38→20:33)
[2017-08-12] MEDS: VANCOMYCIN 2000 MG/NS 500 ML IVPB IV SCH ×4 (10:38→20:34)
[2017-08-12] MEDS ORDERED: PANT40TA3 PO (10:39)
[2017-08-12] MEDS ORDERED: AMIO200T2 PO (10:39)
[2017-08-12] MEDS ORDERED: RANI150T11 PO (10:39)
[2017-08-12] MEDS ORDERED: MAGNESIUM OXIDE (MAG-OX)400 MG TAB PO NR (11:15)
[2017-08-12] MEDS ORDERED: KCL 20 MEQ TAB (K-DUR) PO NR (11:15)
[2017-08-12] MEDS ORDERED: CELE200C PO (11:45)
[2017-08-12] MEDS ORDERED: HYDR-3820 PO (11:45)
[2017-08-12] MEDS ORDERED: CELECOXIB 100 MG (CeleBREX) CAP PO PRN (13:00)
[2017-08-12] MEDS: ACYCLOVIR INJECTION 500 MG in NS (IVPB) 250 ML IV SCH ×2 (16:08→20:34)
--- NOTE | 2017-08-12 16:59 | Cardiology Progress Note ---
Subjective Date Seen by Provider: Aug 12, 2017 Time Seen by Provider: 16:57 Subjective/Events-last exam Patient is in bed, still having shortness of breath, refusing bipap, no chest pain Review of Systems General: No Chills, No Night Sweats, No Fatigue, No Malaise, No Appetite, No Other HEENT: No Head Aches, No Visual Changes, No Eye Pain, No Ear Pain, No Dysphasia , No Sinus Congestion, No Post Nasal Drip, No Sore Throat, No Other Pulmonary: Dyspnea, Cough; No Pleuritic Chest Pain, No Other Cardiovascular: Edema; No: Chest Pain, Palpitations, Orthopnea, Paroxysmal Noc. Dyspnea, Lt Headedness, Other Focused Exam Lactate Level 08/11/17 17:27: Lactic Acid Level 1.08 Objective-Cardiology Exam Last Set of Vital Signs Vital Signs 08/11/17 08/12/17 22:35 16:47 Temp 99.5 Pulse 80 Resp 20 B/P (MAP) 132/60 (84) Pulse Ox 97 O2 Delivery OxyMask O2 Flow Rate 8.00 FiO2 60 Capillary Refill : Less Than 3 Seconds I&O Intake and Output 08/12/17 00:00 Daily Weight Change No General: Alert, Oriented X3, Cooperative HEENT: Atraumatic, PERRLA Neck: Supple Lungs: Clear to Auscultation Heart: Regular Rate, Normal S1, Normal S2 Abdomen: Normal Bowel Sounds Extremities: No Clubbing, No Cyanosis Skin: Other (Cellulitis) Results Lab Laboratory Tests 08/11/17 17:27 08/12/17 05:29 A/P-Cardiology Admission Diagnosis Shortness of breath Acute exacerbation of COPD Paroxysmal atrial fibrillation Cellulitis Assessment/Plan Shortness of breath, acute since elevation of COPD, elevated BNP level, no previous history of heart failure, had a recent FELIPA with electrical cardioversion, responded well to diuretics. Records are still pending, patient is reporting improvement. Recurrent hemoptysis, intolerant to anticoagulation, seen by crepe box tender and gastroenterologists in [facility], underwent extensive workup, I'll try to obtain copy of the results. Consult Dr. Jones Paroxysmal atrial fibrillation, had recent FLEIPA with cardioversion. Continue to monitor EKG at this time. Cellulitis, questionable shingles, Dr. Gomez was consulted, managed by primary care team Hypoxemia, has been using oxygen at home, refusing BiPAP. On x-rays liters oxygen Obstructive sleep apnea, intolerant to C Pap Obesity, BMI 57. History of peripheral arterial disease, underwent intervention by Dr. Rodriguez on her leg after an injury done about 10 years ago. Clinical Quality Measures DVT/VTE Risk/Contraindication: Risk Factor Score Per Nursin RFS Level Per Nursing on Admit: 4+=Very High CHANELLE FENG MD Aug 12, 2017 16:59
[2017-08-12] MEDS: MAGNESIUM OXIDE (MAG-OX)400 MG TAB PO SCH (20:11)
--- NOTE | 2017-08-12 20:22 | History & Physicial ---
History of Present Illness History of Present Illness Reason for visit/HPI This is a 62 year old female who had underwent cardioversion by Dr. Boyd at [place] approximately 1 week ago. At that time she had cellulitis on her right lower leg and was started on amoxil. However, her leg was not improving but worsening and she became more short of air. She was sent to the emergency room where she was found to be hypoxic even with 4 liters of NC in place. She was found to have bilateral pulmonary edema with an elevated BNP. She was also found to have cellulitis of her right posterior calf. She was given IV lasix and started on BIPAP and was admitted for further evaluation and treatment. Date of Admission Aug 11, 2017 at 9:51 pm Date Seen by Provider: Aug 12, 2017 Time Seen by Provider: 12:30 I consulted on this patient on 08/12/17 20:16 Attending Physician Monik Roach DO Admitting Physician Monik Roach DO Consult Allergies and Home Medications Allergies Coded Allergies: bupropion (Unverified Allergy, Unknown, RASH, 04/04/14) Home Medications Amiodarone HCl 200 Mg Tablet, PO UD, (Reported) TAKE 2 TABS TWICE DAILY X 7 DAYS THEN TAKE 1 TAB DAILY THERAFTER, FILLED 07-31 Carvedilol 6.25 Mg Tablet, 6.25 MG PO BID, (Reported) Celecoxib 200 Mg Capsule, 200 MG PO BID PRN for KNEE PAIN, (Reported) Hydrocodone/Acetaminophen 1 Each Tablet, 1 TAB PO Q4H PRN for PAIN-MODERATE, ( Reported) Montelukast Sodium 10 Mg Tablet, 10 MG PO DAILY, (Reported) Pantoprazole Sodium 40 Mg Tablet.dr, 40 MG PO DAILY, (Reported) Ranitidine HCl 150 Mg Tablet, 150 MG PO BID, (Reported) 7 DAY THERAPY FILLED 08-05-17 Sertraline HCl 50 Mg Tablet, 50 MG PO DAILY, (Reported) Patient Home Medication List Home Medication List Reviewed: Yes Past Vptnvtv-Blesnj-Qttopr Hx Patient Social History Alcohol Use: Denies Use Number of Drinks Today: AA Recreational Drug Use: No Smoking Status: Former Smoker Former Smoker, Quit: May 08, 2012 Type Used: Cigarettes, Electronic/Vapor Physical Abuse Screen: No Sexual Abuse: No Recent Foreign Travel: No Contact w/other who traveled: No Recent Hopitalizations: No Recent Infectious Disease Expo: No Immunizations Up To Date Tetanus Booster (TDap): Unknown Date of Pneumonia Vaccine: Jan 09, 2016 Date of Influenza Vaccine: Jan 09, 2016 Seasonal Allergies Seasonal Allergies: Yes Surgeries Yes (LEFT TKR, REPAIR ARTERIES/VEINS BEHIND LT KNEE, HEART CATH) Gallbladder, Vascular Surgery Respiratory Yes (WEARS O2 @ 4L PER N/C) Cardiovascular Yes Atrial Fibrillation, Deep Vein Thrombosis Neurological No Reproductive System Hx Reproductive Disorders: No Sexually Transmitted Disease: Yes Genitourinary Yes (overactive bladder) Gastrointestinal Yes Gastroesophageal Reflux Musculoskeletal Yes (BAD KNEES) Arthritis Endocrine History of Endocrine Disorders: No HEENT History of HEENT Disorders: Yes (bilat cataract taken out) HEENT Disorders: Cataract Loss of Vision: Denies Hearing Impairment: Denies Cancer Yes Skin Did You Recieve Any Treatments: Yes Type of Treatment: Surgical Intervention Psychosocial History of Psychiatric Problem: No Integumentary History of Skin or Integumenta: Yes (ABCESS ON RIGHT CHEEK) Blood Transfusions History of Blood Disorders: Yes (TAKES COREG) Family Medical History Family Hx: FH: atrial fibrillation 19 MOTHER FH: lung cancer 19 FATHER Constitutional: weakness, weight gain EENTM: No see HPI, No no symptoms reported, No ear discharge, No hearing loss, No ear pain, No blurred vision, No double vision, No eye pain, No tearing, No vision loss, No dental problems, No hoarseness, No mouth pain, No mouth swelling , No epistaxis, No nose congestion, No nose pain, No throat pain, No throat swelling, No other Respiratory: cough, dyspnea on exertion, short of breath Cardiovascular: edema Gastrointestinal: No RUQ, No LUQ, No RLQ, No LLQ, No no symptoms reported, No see HPI, No abdominal pain, No constipation, No diarrhea, No dysphagia, No hematemesis, No heartburn, No jaundice, No loss of appetite, No melena, No nausea, No vomiting, No other Genitourinary: No no symptoms reported, No see HPI, No decreased output, No discharge, No dysuria, No frequency, No hematuria, No hesitancy, No incontinence , No nocturia, No pain, No other Musculoskeletal: back pain Skin: other (cellulitis of right lower leg) Psychiatric/Neurological: Weakness, Other (burning to right leg cellulitis area ) Physical Exam Vital Signs Vital Signs - First Documented 08/11/17 08/11/17 08/11/17 17:26 17:40 22:35 Temp 96.6 Pulse 55 Resp 35 B/P (MAP) 132/77 (95) Pulse Ox 97 O2 Delivery Nasal Cannula O2 Flow Rate 50.00 FiO2 60 Capillary Refill : Less Than 3 Seconds General Appearance: Moderate Distress Neck: Supple Respiratory: Crackles, Decreased Breath Sounds, Respiratory Distress Cardiovascular: Regular Rate, Rhythm, Systolic Murmur, Gallop/S4 Gastrointestinal: Normal Bowel Sounds, Non Tender, Soft Rectal: Deferred Back: No CVA Tenderness Extremity: Non Tender, Inflammation (right posterior calf), Pedal Edema Neurologic/Psychiatric: Alert, Oriented x3 Skin: Other (right posterior calf with ulcerative lesions with surrounding erythema) Comments Laboratory Tests 08/12/17 05:29: White Blood Count 5.6, Red Blood Count 3.98L, Hemoglobin 12.6, Hematocrit 42, Mean Corpuscular Volume 105H, Mean Corpuscular Hemoglobin 32, Mean Corpuscular Hemoglobin Concent 30L, Red Cell Distribution Width 16.0H, Platelet Count 141, Mean Platelet Volume 11.2H, Sodium Level 147H, Potassium Level 3.3L, Chloride Level 98, Carbon Dioxide Level 37H, Anion Gap 12, Blood Urea Nitrogen 14, Creatinine 0.66, Estimat Glomerular Filtration Rate > 60, BUN/Creatinine Ratio 21, Glucose Level 74, Calcium Level 8.7, Total Bilirubin 2.6H, Aspartate Amino Transf (AST/SGOT) 16, Alanine Aminotransferase (ALT/SGPT) 20, Alkaline Phosphatase 57, B-Type Natriuretic Peptide 604.1H, Total Protein 5.5L, Albumin 3.0L Microbiology 08/11/17 Blood Culture - Preliminary, Resulted No growth Assessment/Plan Assessment and Plan 1. Acute Respiratory Failure with Hypoxia--admit on BIPAP 2. Pulmonary Edema--Acute on Chronic Diastolic Congestive Heart Failure--admit on IV lasix 3. COPD--start SVNS 4. Right Lower Extremity Shingles with secondary infection--start IV acyclovir and monitor redness, will DC antibiotics tomorrow if WBC count stable/afebrile and no worsening erythema 5. Paroxysmal Atrial Fibrillation--S/P cardioversion--cover with lovenox and resume home meds and consult cardiology Admission Diagnosis Admission Status: Inpatient Order (span 2 midnights) Reason for Inpatient Admission: Will require BIPAP and at least 48hrs of IV antibiotics Clinical Quality Measures DVT/VTE Risk/Contraindication: Risk Factor Score Per Nursin RFS Level Per Nursing on Admit: 4+=Very High MONIK ROACH DO Aug 12, 2017 8:22 pm
[2017-08-12] MEDS: FAMOTIDINE 20 MG (PEPCID) TABLET PO SCH (20:33)
[2017-08-12] MEDS: CARVEDILOL 6.25 MG (COREG) TAB PO SCH (20:43)
[2017-08-12] MEDS: cefTRIAXone 1 GM/NS 50 ML IVPB IV SCH ×2 (23:14)
[2017-08-13 00:19] VITALS: BP 131/79
[2017-08-13] MEDS: RT-ALBUTEROL/IPRATROPIUM 3 ML (DUONEB) VIAL INH SCH ×6 (03:21→22:27)
[2017-08-13] MEDS: HYDROcodone/APAP 7.5 MG/325 MG (LORTAB, LORCET PLUS) TABLET PO PRN ×2 (03:52→18:47)
[2017-08-13 04:48] VITALS: BP 137/68
[2017-08-13 06:10] LABS: BASOPHILS % (AUTO) 0 % (0-10); EOSINOPHILS # (AUTO) 0.1 10^3/uL (0.0-0.3); EOSINOPHILS % (AUTO) 2 % (0-10); HEMATOCRIT 41 % (35-52); HEMOGLOBIN 12.9 G/DL (11.5-16.0); LYMPHOCYTES # (AUTO) 1.1 X 10^3 (1.0-4.0); LYMPHOCYTES % (AUTO) 19 % (12-44); MEAN CORPUSCULAR HEMOGLOBIN 33 PG (25-34); MEAN CORPUSCULAR HGB CONC 31 G/DL (32-36); MEAN CORPUSCULAR VOLUME 105 FL (80-99); MEAN PLATELET VOLUME 11.1 FL (7.4-10.4); MONOCYTES # (AUTO) 0.5 X 10^3 (0.0-1.0); MONOCYTES % (AUTO) 9 % (0-12); NEUTROPHILS % (AUTO) 70 % (42-75); PLATELET COUNT 131 10^3/uL (130-400); RED BLOOD COUNT 3.93 10^6/uL (4.35-5.85); RED CELL DISTRIBUTION WIDTH 15.9 % (10.0-14.5); WHITE BLOOD COUNT 5.7 10^3/uL (4.3-11.0)
[2017-08-13] MEDS: FUROSEMIDE 40 MG/4 ML INJ (LASIX) IV SCH (06:19)
[2017-08-13] MEDS: KCL 20 MEQ TAB (K-DUR) PO SCH (06:19)
[2017-08-13] MEDS: ACYCLOVIR INJECTION 500 MG in NS (IVPB) 250 ML IV SCH ×3 (06:20→21:18)
[2017-08-13 06:36] LABS: ALANINE AMINOTRANSFERASE 19 U/L (0-55); ALBUMIN 2.9 GM/DL (3.2-4.5); ALKALINE PHOSPHATASE 57 U/L (40-136); BILIRUBIN,TOTAL 2.4 MG/DL (0.1-1.0); BUN/CREATININE RATIO 18; CALCIUM 8.7 MG/DL (8.5-10.1); CARBON DIOXIDE 39 MMOL/L (21-32); CHLORIDE 97 MMOL/L (98-107); GFR ESTIMATED > 60; GLUCOSE 92 MG/DL (70-105); POTASSIUM 3.7 MMOL/L (3.6-5.0); SODIUM 145 MMOL/L (135-145); TOTAL PROTEIN 5.6 GM/DL (6.4-8.2)
[2017-08-13 07:34] LABS: ABG OXYGEN SATURATION 96 % (94-100); ABG PCO2 67 MMHG (35-45); ABG PH 7.44 (7.37-7.43); ABG PO2 78 MMHG (79-93); ABG TCO2 46.8 MMOL/L (21.0-31.0)
[2017-08-13 07:36] LABS: ALLENS TEST YES-POS; INSPIRED O2 100%; VENTILATOR NO
[2017-08-13] MEDS ORDERED: TROUGH ORDER-PHARMACY XX ONE (08:00)
--- NOTE | 2017-08-13 08:03 | Pulmonary Consultation ---
History of Present Illness History of Present Illness Date of Consultation 08/13/17 07:57 Time Seen by Provider: 07:57 Date of Admission Reason for Visit: shortness of breath History of Present Illness 62yo morbidly obese patient with hx of ARCHIE and noncompliant with CPAP therapy. SHe has been seeing Dr. Pineda in [place] however Dr. Pham stats pt wants to establish care with me. She has been having worsening SOB and is requiring increasing amounts of oxygen. CT of chest is negative for PE however she has bilateral R>L pleural effusions. She is on 40mg of lasix daily. ABG shows resp/ metabolic acidosis. Allergies and Home Medications Allergies Coded Allergies: bupropion (Unverified Allergy, Unknown, RASH, 04/04/14) Home Medications Amiodarone HCl 200 Mg Tablet, PO UD, (Reported) TAKE 2 TABS TWICE DAILY X 7 DAYS THEN TAKE 1 TAB DAILY THERAFTER, FILLED 07-31 Carvedilol 6.25 Mg Tablet, 6.25 MG PO BID, (Reported) Celecoxib 200 Mg Capsule, 200 MG PO BID PRN for KNEE PAIN, (Reported) Hydrocodone/Acetaminophen 1 Each Tablet, 1 TAB PO Q4H PRN for PAIN-MODERATE, ( Reported) Montelukast Sodium 10 Mg Tablet, 10 MG PO DAILY, (Reported) Pantoprazole Sodium 40 Mg Tablet.dr, 40 MG PO DAILY, (Reported) Ranitidine HCl 150 Mg Tablet, 150 MG PO BID, (Reported) 7 DAY THERAPY FILLED 08-05-17 Sertraline HCl 50 Mg Tablet, 50 MG PO DAILY, (Reported) Past Ouuckoj-Syngos-Akaheh Hx Patient Social History Alcohol Use: Denies Use Number of Drinks Today: AA Recreational Drug Use: No Smoking Status: Former Smoker Type Used: Cigarettes, Electronic/Vapor Former Smoker, Quit: May 08, 2012 Recent Foreign Travel: No Contact w/Someone Who Travel: No Recent Infectious Disease Expo: No Recent Hopitalizations: No Physical Abuse: No Sexual Abuse: No Mistreated: No Fear: No Immunizations Up To Date Tetanus Booster (TDap): Unknown Date of Pneumonia Vaccine: Jan 09, 2016 Date of Influenza Vaccine: Jan 09, 2016 Seasonal Allergies Seasonal Allergies: Yes Past Medical History Surgeries: Yes (LEFT TKR, REPAIR ARTERIES/VEINS BEHIND LT KNEE, HEART CATH) Gallbladder, Vascular Surgery Respiratory: Yes (WEARS O2 @ 4L PER N/C) Asthma, Sleep Apnea, COPD Cardiac: Yes Atrial Fibrillation, Deep Vein Thrombosis Neurological: No Reproductive Disorders: No Sexually Transmitted Disease: Yes Genitourinary: Yes (overactive bladder) Gastrointestinal: Yes Gastroesophageal Reflux Musculoskeletal: Yes (BAD KNEES) Arthritis Endocrine: No HEENT: Yes (bilat cataract taken out) Cataract Loss of Vision: Denies Hearing Impairment: Denies Cancer: Yes Skin Did You Recieve Any Treatments: Yes What Type of Treatment Did You: Surgical Intervention Psychosocial: No Nursing Suicide Risk Score: 0 Integumentary: Yes (ABCESS ON RIGHT CHEEK) Blood Disorders: Yes (TAKES COREG) Family Medical History FH: atrial fibrillation 19 MOTHER FH: lung cancer 19 FATHER Review of Systems Time Seen by Provider: 08:03 Exam Exam Vital Signs Date Time Temp Pulse Resp B/P (MAP) Pulse Ox O2 Delivery O2 Flow Rate FiO2 08/13/17 07:33 69 OxyMask 10.00 08/13/17 04:48 97.6 75 19 137/68 (91) 89 OxyMask 7.00 08/13/17 03:21 88 OxyMask 10.00 08/13/17 01:00 73 08/13/17 00:19 97.9 84 19 131/79 (96) 88 OxyMask 7.00 08/12/17 22:37 91 OxyMask 10.00 08/12/17 21:00 91 OxyMask 6.50 08/12/17 19:25 86 OxyMask 8.00 08/12/17 19:23 98.9 86 22 134/65 (88) OxyMask 7.00 08/12/17 19:00 81 08/12/17 16:47 99.5 80 20 132/60 (84) 97 OxyMask 8.00 08/12/17 14:32 90 OxyMask 8.00 08/12/17 13:00 77 08/12/17 12:00 97.9 78 18 140/65 (90) 90 OxyMask 8.00 08/12/17 11:04 89 Nasal Cannula 7.00 08/12/17 09:50 91 OxyMask 6.50 08/12/17 08:27 98.0 73 22 146/75 (98) 90 OxyMask 7.00 I & O 08/13/17 07:00 Intake Total 2962 ml Output Total 5000 ml Balance -2038 ml General Appearance: Moderate Distress HEENT: PERRL/EOMI, TMs Normal, Normal ENT Inspection, Pharynx Normal Neck: Supple Respiratory: Crackles, Decreased Breath Sounds, Respiratory Distress Cardiovascular: Regular Rate, Rhythm, Systolic Murmur, Gallop/S4 Capillary Refill: Less Than 3 Seconds Extremity: Non Tender, Inflammation (right posterior calf), Pedal Edema Neurologic/Psychiatric: Alert, Oriented x3 Skin: Other (right posterior calf with ulcerative lesions with surrounding erythema) Lymphatic: No Adenopathy Results Lab Laboratory Tests 08/11/17 17:27 08/12/17 05:29 08/13/17 05:51 Assessment/Plan Assessment/Plan Acute on chronic respiratory failure -noninvasive ventilation -SVNs, oxygen therapy Acute pulmonary edema with pleural effusions -Continue Lasix and give an extra dose of 40mg of IV Lasix Morbid obesity with OHS -Pt will benefit from home vent to mask debility Atelectasis -Increase activity 255 TARUN SANDOVAL DO Aug 13, 2017 08:03
--- NOTE | 2017-08-13 08:30 | Cardiology Progress Note ---
Subjective Date Seen by Provider: Aug 13, 2017 Time Seen by Provider: 08:28 Subjective/Events-last exam Patient is laying down in bed, complaining of shortness of breath, slightly better than yesterday. No chest pain. Review of Systems General: No Chills, No Night Sweats, No Fatigue, No Malaise, No Appetite, No Other HEENT: No Head Aches, No Visual Changes, No Eye Pain, No Ear Pain, No Dysphasia , No Sinus Congestion, No Post Nasal Drip, No Sore Throat, No Other Pulmonary: Dyspnea; No Cough, No Pleuritic Chest Pain, No Other Cardiovascular: Edema; No: Chest Pain, Palpitations, Orthopnea, Paroxysmal Noc. Dyspnea, Lt Headedness, Other Focused Exam Lactate Level 08/11/17 17:27: Lactic Acid Level 1.08 Objective-Cardiology Exam Last Set of Vital Signs Vital Signs 08/11/17 08/13/17 08/13/17 22:35 04:48 07:33 Temp 97.6 Pulse 75 Resp 19 B/P (MAP) 137/68 (91) Pulse Ox 69 O2 Delivery OxyMask O2 Flow Rate 10.00 FiO2 60 Capillary Refill : Less Than 3 Seconds I&O Intake and Output 08/13/17 00:00 Intake Total 3362 ml Output Total 8550 ml Balance -5188 ml Intake Oral 2582 ml IV Total 780 ml Output Urine Total 8550 ml # Bowel Movements 1 General: Alert, Oriented X3, Cooperative HEENT: Atraumatic, PERRLA Neck: Supple Lungs: Normal Air Movement Heart: Regular Rate, Normal S1, Normal S2 Abdomen: Normal Bowel Sounds Extremities: No Clubbing, No Cyanosis Skin: No Rashes, Other (Cellulitis) Neuro: Normal Speech Results Lab Laboratory Tests 08/13/17 05:51 A/P-Cardiology Admission Diagnosis Shortness of breath Acute exacerbation of COPD Paroxysmal atrial fibrillation Cellulitis Assessment/Plan Shortness of breath, acute since elevation of COPD, elevated BNP level, no previous history of heart failure, had a recent FELIPA with electrical cardioversion, responded well to diuretics. Continue with diuretics. Congestive heart failure, acute on chronic left ventricular diastolic dysfunction, normal systolic function. Continue on diuretics and monitor. Pleural effusion, COPD, obesity hypoventilation syndrome with severe pulmonary hypertension. Consult Dr. Jones. Recurrent hemoptysis, intolerant to anticoagulation, seen by bell clerk and gastroenterologists in [facility], underwent extensive workup, I'll try to obtain copy of the results. Consult Dr. Jones Paroxysmal atrial fibrillation, had recent FELIPA with cardioversion. Continue to monitor EKG at this time. Cellulitis, questionable shingles, Dr. Gomez was consulted, managed by primary care team Hypoxemia, has been using oxygen at home, refusing BiPAP. On x-rays liters oxygen Obstructive sleep apnea, intolerant to C Pap Obesity, BMI 57. History of peripheral arterial disease, underwent intervention by Dr. Rodriguez on her leg after an injury done about 10 years ago. Clinical Quality Measures DVT/VTE Risk/Contraindication: Risk Factor Score Per Nursin RFS Level Per Nursing on Admit: 4+=Very High CHANELLE FENG MD Aug 13, 2017 08:30
[2017-08-13 08:31] VITALS: BP 126/63
[2017-08-13] MEDS ORDERED: FUROSEMIDE 40 MG/4 ML INJ (LASIX) IVP NR (08:45)
[2017-08-13] MEDS: PANTOPRAZOLE 40 MG (PROTONIX) TAB PO SCH (09:19)
[2017-08-13] MEDS: FAMOTIDINE 20 MG (PEPCID) TABLET PO SCH ×2 (09:19→21:18)
[2017-08-13] MEDS: MAGNESIUM OXIDE (MAG-OX)400 MG TAB PO SCH ×2 (09:19→18:47)
[2017-08-13] MEDS: ENOXAPARIN 60 MG/0.6 ML (LOVENOX) SYR SC SCH ×2 (09:19→21:17)
[2017-08-13] MEDS: CARVEDILOL 6.25 MG (COREG) TAB PO SCH ×2 (09:20→21:17)
[2017-08-13] MEDS: MONTELUKAST 10 MG (SINGULAIR) TAB PO SCH (09:20)
[2017-08-13] MEDS: SERTRALINE 50 MG (ZOLOFT) TABLET PO SCH (09:20)
[2017-08-13] MEDS: VANCOMYCIN 2000 MG/NS 500 ML IVPB IV SCH ×2 (09:24)
[2017-08-13 16:00] VITALS: BP 119/57
--- NOTE | 2017-08-13 18:12 | Wound Care Assessment ---
Wound Care Assessment Date Seen by Provider: Aug 13, 2017 Time Seen by Provider: 17:30 Chief Complaint R posterior calf lesion. HPI The patient is a 62 year old female with a painful ulcerated area of R posterior calf, which has appeared to be related to shingles, and noted to have cyanotic borders and present for 1+ week. There are numerous new small violaceous macules on both calves which have arisen since then. The largest of these has a necrotic center. The patient has been on various different anticoagulants in the last several weeks, in order to treat Atrial Fibrillation. She has had multiple episodes of bleeding complications on Zarelto, Eliquis, and aspirin. She has not received Warfarin in over three years. Past Medical History: Admits Heart Disease (Atrial fibrillation, congestive heart failure.), Admits Peripheral Artery Disease (Repair of L leg arteries.) COPD, Arthritis, L knee replacement. Smoking Status: Former Smoker Recreational Drug Use: No Alcohol Use: Denies Use Review of Systems Pulmonary: Dyspnea, Cough Cardiovascular: Chest Pain, Orthopnea, Edema Musculoskeletal: leg pain Neurological: Weakness (R leg) Exam Vital Signs Date Time Temp Pulse Resp B/P (MAP) Pulse Ox O2 Delivery O2 Flow Rate FiO2 08/13/17 16:00 98.7 67 20 119/57 (77) 95 Vapotherm 95.00 25.00 08/13/17 14:21 95 Capillary Refill : Less Than 3 Seconds General Appearance: mild distress Skin: other (R posterior calf -- 5.0 x 7.0 x 0.2 cm 100% slough, periwound is cyanotic., Multiple (>20) macules bilateral legs with necrotic centers.) Results Laboratory Tests 08/13/17 05:51: White Blood Count 5.7, Red Blood Count 3.93L, Hemoglobin 12.9, Hematocrit 41, Mean Corpuscular Volume 105H, Mean Corpuscular Hemoglobin 33, Mean Corpuscular Hemoglobin Concent 31L, Red Cell Distribution Width 15.9H, Platelet Count 131, Mean Platelet Volume 11.1H, Neutrophils (%) (Auto) 70, Lymphocytes (%) (Auto) 19 , Monocytes (%) (Auto) 9, Eosinophils (%) (Auto) 2, Basophils (%) (Auto) 0, Neutrophils # (Auto) 4.0, Lymphocytes # (Auto) 1.1, Monocytes # (Auto) 0.5, Eosinophils # (Auto) 0.1, Basophils # (Auto) 0.0, Sodium Level 145, Potassium Level 3.7, Chloride Level 97L, Carbon Dioxide Level 39H, Anion Gap 9, Blood Urea Nitrogen 11, Creatinine 0.60, Estimat Glomerular Filtration Rate > 60, BUN/ Creatinine Ratio 18, Glucose Level 92, Calcium Level 8.7, Total Bilirubin 2.4H, Aspartate Amino Transf (AST/SGOT) 14, Alanine Aminotransferase (ALT/SGPT) 19, Alkaline Phosphatase 57, Total Protein 5.6L, Albumin 2.9L 08/13/17 07:30: Blood Gas Puncture Site LT RAD, Blood Gas Patient Temperature 98.0, Arterial Blood pH 7.44H, Arterial Blood Partial Pressure CO2 67H, Arterial Blood Partial Pressure O2 78L, Arterial Blood HCO3 45*H, Arterial Blood Total CO2 46.8H, Arterial Blood Oxygen Saturation 96, Arterial Blood Base Excess 19.0H, Nathaniel Test YES-POS, Blood Gas Ventilator Setting NO, Blood Gas Inspired Oxygen 100% 08/13/17 08:08: Vancomycin Level Trough 17.6 Microbiology 08/11/17 Blood Culture - Preliminary, Resulted No growth Assessment/Plan/Dx 1. R posterior calf ulcer, partial thickness, uncertain etiology, may represent shingles. although it has an unusual distribution. 2. congestive heart failure, edema of BLE. 3. R/O vasculitis. 4. Morbid obesity. Plan: Elevate, non-adherent dressings, incisional biopsy to assist in diagnosis. LELAND DOBBS MD Aug 13, 2017 18:12
[2017-08-13 20:00] VITALS: BP 139/63
--- NOTE | 2017-08-13 23:15 | Progress Note (SOAP) ---
Subjective Date Seen by Provider: Aug 13, 2017 Time Seen by Provider: 12:30 Subjective/Events-last exam Fwup Pulmonary Edema/Acute on Chronic Diastolic CHF, RLE cellulitis with ulcer, COPD, Paroxysmal atrial fibrillation. Right leg not as sore. Breathing a little bit easier. Focused Exam Lactate Level 08/11/17 17:27: Lactic Acid Level 1.08 Objective Exam Vital Signs Date Time Temp Pulse Resp B/P (MAP) Pulse Ox O2 Delivery O2 Flow Rate FiO2 08/13/17 22:27 94 Vapotherm 25.00 95 08/13/17 20:55 Vapotherm 25.00 95 08/13/17 20:00 97.5 74 20 139/63 (88) 95 Vapotherm 95.00 25.00 08/13/17 19:07 94 Vapotherm 25.00 95 08/13/17 19:03 74 08/13/17 16:00 98.7 67 20 119/57 (77) 95 Vapotherm 95.00 25.00 08/13/17 14:21 92 Vapotherm 25.00 95 08/13/17 13:00 72 08/13/17 09:53 92 Vapotherm 25.00 95 08/13/17 08:35 94 Vapotherm 25.00 08/13/17 08:31 97.3 74 20 126/63 (84) 94 Vapotherm 95.00 25.00 08/13/17 07:33 69 OxyMask 10.00 08/13/17 07:00 83 08/13/17 04:48 97.6 75 19 137/68 (91) 89 OxyMask 7.00 08/13/17 03:21 88 OxyMask 10.00 08/13/17 01:00 73 08/13/17 00:19 97.9 84 19 131/79 (96) 88 OxyMask 7.00 I & O 08/13/17 07:00 Intake Total 2962 ml Output Total 5000 ml Balance -2038 ml Capillary Refill : Less Than 3 Seconds General Appearance: Mild Distress Neck: Supple Respiratory: Crackles, Decreased Breath Sounds Cardiovascular: Regular Rate, Rhythm, Gallop/S4 Extremity: Swelling Neurologic/Psychiatric: Alert, Oriented x3 Skin: Other Results Lab Laboratory Tests 08/13/17 05:51: White Blood Count 5.7, Red Blood Count 3.93L, Hemoglobin 12.9, Hematocrit 41, Mean Corpuscular Volume 105H, Mean Corpuscular Hemoglobin 33, Mean Corpuscular Hemoglobin Concent 31L, Red Cell Distribution Width 15.9H, Platelet Count 131, Mean Platelet Volume 11.1H, Neutrophils (%) (Auto) 70, Lymphocytes (%) (Auto) 19 , Monocytes (%) (Auto) 9, Eosinophils (%) (Auto) 2, Basophils (%) (Auto) 0, Neutrophils # (Auto) 4.0, Lymphocytes # (Auto) 1.1, Monocytes # (Auto) 0.5, Eosinophils # (Auto) 0.1, Basophils # (Auto) 0.0, Sodium Level 145, Potassium Level 3.7, Chloride Level 97L, Carbon Dioxide Level 39H, Anion Gap 9, Blood Urea Nitrogen 11, Creatinine 0.60, Estimat Glomerular Filtration Rate > 60, BUN/ Creatinine Ratio 18, Glucose Level 92, Calcium Level 8.7, Total Bilirubin 2.4H, Aspartate Amino Transf (AST/SGOT) 14, Alanine Aminotransferase (ALT/SGPT) 19, Alkaline Phosphatase 57, Total Protein 5.6L, Albumin 2.9L 08/13/17 07:30: Blood Gas Puncture Site LT RAD, Blood Gas Patient Temperature 98.0, Arterial Blood pH 7.44H, Arterial Blood Partial Pressure CO2 67H, Arterial Blood Partial Pressure O2 78L, Arterial Blood HCO3 45*H, Arterial Blood Total CO2 46.8H, Arterial Blood Oxygen Saturation 96, Arterial Blood Base Excess 19.0H, Nathaniel Test YES-POS, Blood Gas Ventilator Setting NO, Blood Gas Inspired Oxygen 100% 08/13/17 08:08: Vancomycin Level Trough 17.6 Microbiology 08/11/17 Blood Culture - Preliminary, Resulted No growth Assessment/Plan Assessment/Plan Assess & Plan/Chief Complaint 1. Acute Pulmonary Edema/Acute on Chronic Diastolic CHF--continue with IV lasix for diuresis 2. Acute Respiratory Distress with Hypoxia--down to Vapotherm 3. Acute RLE cellulitis with ulceration--continue Rocephin and Zovirax and wound care suggests biopsy 4. Paroxysmal Atrial Fibrillation--S/P cardioversion 5. COPD--stable Clinical Quality Measures Admission Status Admission Dx 1. Acute Respiratory Failure with Hypoxia--admit on BIPAP 2. Pulmonary Edema--Acute on Chronic Diastolic Congestive Heart Failure--admit on IV lasix 3. COPD--start SVNS 4. Right Lower Extremity Shingles with secondary infection--start IV acyclovir and monitor redness, will DC antibiotics tomorrow if WBC count stable/afebrile and no worsening erythema 5. Paroxysmal Atrial Fibrillation--S/P cardioversion--cover with lovenox and resume home meds and consult cardiology DVT/VTE Risk/Contraindication: Risk Factor Score Per Nursin RFS Level Per Nursing on Admit: 4+=Very High DEANN BUCKNER DO Aug 13, 2017 11:15 pm
[2017-08-13] MEDS: cefTRIAXone 1 GM/NS 50 ML IVPB IV SCH ×2 (23:36)
[2017-08-14] VITALS: BP 136/54
[2017-08-14] MEDS: RT-ALBUTEROL/IPRATROPIUM 3 ML (DUONEB) VIAL INH SCH ×6 (01:49→22:35)
[2017-08-14 05:00] VITALS: BP 152/65
[2017-08-14] MEDS: ACYCLOVIR INJECTION 500 MG in NS (IVPB) 250 ML IV SCH ×3 (05:28→21:33)
[2017-08-14 06:37] LABS: ALANINE AMINOTRANSFERASE 16 U/L (0-55); ALBUMIN 2.8 GM/DL (3.2-4.5); ALKALINE PHOSPHATASE 50 U/L (40-136); BILIRUBIN,TOTAL 1.9 MG/DL (0.1-1.0); BUN/CREATININE RATIO 18; CALCIUM 8.4 MG/DL (8.5-10.1); CARBON DIOXIDE 37 MMOL/L (21-32); CHLORIDE 93 MMOL/L (98-107); CREATININE SERUM 0.62 MG/DL (0.60-1.30); GFR ESTIMATED > 60; GLUCOSE 97 MG/DL (70-105); POTASSIUM 3.5 MMOL/L (3.6-5.0); SODIUM 142 MMOL/L (135-145); TOTAL PROTEIN 5.4 GM/DL (6.4-8.2)
[2017-08-14] MEDS: KCL 20 MEQ TAB (K-DUR) PO SCH (06:46)
[2017-08-14] MEDS ORDERED: FUROSEMIDE 40 MG/4 ML INJ (LASIX) IV NR (07:00)
--- NOTE | 2017-08-14 07:39 | Pulmonary Progress Note ---
Subjective Time Seen by Provider: 07:38 Subjective/Events-last exam Pt continues to require 90%oxygen via high flow and still complains of SOB. No productive cough. Focused Exam Lactate Level 08/11/17 17:27: Lactic Acid Level 1.08 Exam Exam Vital Signs Date Time Temp Pulse Resp B/P (MAP) Pulse Ox O2 Delivery O2 Flow Rate FiO2 08/14/17 06:56 90 Vapotherm 25.00 95 08/14/17 05:00 97.8 71 19 152/65 (94) 91 Vapotherm 95.00 25.00 08/14/17 01:49 90 Vapotherm 25.00 95 08/14/17 01:00 64 08/14/17 00:00 98.6 70 19 136/54 (81) 95 Vapotherm 95.00 25.00 08/13/17 22:27 94 Vapotherm 25.00 95 08/13/17 20:55 Vapotherm 25.00 95 08/13/17 20:00 97.5 74 20 139/63 (88) 95 Vapotherm 95.00 25.00 08/13/17 19:07 94 Vapotherm 25.00 95 08/13/17 19:03 74 08/13/17 16:00 98.7 67 20 119/57 (77) 95 Vapotherm 95.00 25.00 08/13/17 14:21 92 Vapotherm 25.00 95 08/13/17 13:00 72 08/13/17 09:53 92 Vapotherm 25.00 95 08/13/17 08:35 94 Vapotherm 25.00 08/13/17 08:31 97.3 74 20 126/63 (84) 94 Vapotherm 95.00 25.00 I & O 08/14/17 07:00 Intake Total 3705 ml Output Total 5240 ml Balance -1535 ml General Appearance: Mild Distress HEENT: PERRL/EOMI, TMs Normal, Normal ENT Inspection, Pharynx Normal Neck: Supple Respiratory: Crackles, Decreased Breath Sounds Cardiovascular: Regular Rate, Rhythm, Gallop/S4 Capillary Refill: Less Than 3 Seconds Extremity: Swelling Neurologic/Psychiatric: Alert, Oriented x3 Skin: Other Lymphatic: No Adenopathy Results Lab Laboratory Tests 08/13/17 05:51 08/14/17 05:40 Assessment/Plan Assessment/Plan Acute on chronic respiratory failure -noninvasive ventilation - pt is still requiring 90% oxygen via Vapotherm -SVNs, oxygen therapy Acute pulmonary edema with pleural effusions -Continue Lasix and give 80mg of Lasix Hypokalemia -replace with 60meq of IV lasix and 40meq of PO lasix -Pt is also getting 80mg of IV lasix Morbid obesity with OHS -Pt will benefit from home vent to mask debility Atelectasis -Increase activity 233 TARUN SANDOVAL DO Aug 14, 2017 07:39
[2017-08-14] MEDS ORDERED: POTASSIUM CL 10MEQ/50ML IVPB 50 ML IV SCH (07:45)
[2017-08-14] MEDS ORDERED: FUROSEMIDE 40 MG/4 ML INJ (LASIX) IVP NR (07:45)
[2017-08-14 08:00] VITALS: BP 122/84
[2017-08-14] MEDS: ENOXAPARIN 60 MG/0.6 ML (LOVENOX) SYR SC SCH ×2 (09:47→20:43)
[2017-08-14] MEDS: MONTELUKAST 10 MG (SINGULAIR) TAB PO SCH (10:02)
[2017-08-14] MEDS: CARVEDILOL 6.25 MG (COREG) TAB PO SCH ×2 (10:02→20:42)
[2017-08-14] MEDS: MAGNESIUM OXIDE (MAG-OX)400 MG TAB PO SCH ×2 (10:02→17:17)
[2017-08-14] MEDS: SERTRALINE 50 MG (ZOLOFT) TABLET PO SCH (10:02)
[2017-08-14] MEDS: PANTOPRAZOLE 40 MG (PROTONIX) TAB PO SCH (10:03)
[2017-08-14] MEDS: FAMOTIDINE 20 MG (PEPCID) TABLET PO SCH ×2 (10:03→20:42)
[2017-08-14] MEDS ORDERED: NS IV 1000 ML 1,000 ML ONE (10:07)
[2017-08-14] MEDS ORDERED: NS IV 1000 ML 1,000 ML IV ONE (10:30)
--- NOTE | 2017-08-14 11:14 | Progress Note-Cardiology ---
Cardiology SOAP Progress Note Subjective: In bed. Feels her breathing is unchanged from yesterday. No c/o CP or palpitations. Objective: I&O/Vital Signs 08/14/17 08/14/17 08/14/17 08/14/17 06:56 07:00 08:00 08:00 Temp 99.3 Pulse 74 78 Resp 18 B/P (MAP) 122/84 (97) Pulse Ox 90 92 O2 Delivery Vapotherm Vapotherm Vapotherm O2 Flow Rate 25.00 95.00 25.00 25.00 FiO2 95 08/14/17 08/14/17 08/14/17 08/14/17 10:47 12:00 13:00 14:16 Temp 97.8 Pulse 89 94 Resp 18 B/P (MAP) 111/59 (76) Pulse Ox 91 90 90 O2 Delivery Vapotherm Vapotherm Vapotherm O2 Flow Rate 15.00 95.00 15.00 25.00 FiO2 70 70 08/14/17 08/14/17 16:13 16:34 Temp 98.5 Pulse 87 Resp 20 B/P (MAP) 110/56 (74) Pulse Ox 90 84 O2 Delivery Vapotherm Vapotherm O2 Flow Rate 95.00 15.00 20.00 FiO2 70 08/14/17 00:00 Intake Total 2820 ml Output Total 5000 ml Balance -2180 ml Weight (Pounds): 363 Weight (Ounces): 7.0 Weight (Calculated Kilograms): [id number] Constitutional: AAO x 3, well-developed Respiratory: No accessory muscle use, No respiratory distress; chest expansion is symmetric, chest is bilaterally symmetric, other (fair air entry) Cardiovascular: regular rate-rhythm; No JVD; S1 and S2, systolic murmur Gastrointestional: No tender; soft, audible bowel sounds Extremities: significant edema (bilat pitting and non-pitting edema LE) Neurologic/Psychiatric: oriented x 3, grossly intact Skin: No ulcerations; other (dressings to LE which are D&I and not removed) Results/Procedures: Labs Laboratory Tests 08/14/17 05:40: Sodium Level 142, Potassium Level 3.5L, Chloride Level 93L, Carbon Dioxide Level 37H, Anion Gap 12, Blood Urea Nitrogen 11, Creatinine 0.62, Estimat Glomerular Filtration Rate > 60, BUN/Creatinine Ratio 18, Glucose Level 97, Calcium Level 8.4L, Total Bilirubin 1.9H, Aspartate Amino Transf (AST/SGOT) 13, Alanine Aminotransferase (ALT/SGPT) 16, Alkaline Phosphatase 50, Total Protein 5.4L, Albumin 2.8L 08/14/17 15:16: Sodium Level 141, Potassium Level 3.9, Chloride Level 90L, Carbon Dioxide Level 38H, Anion Gap 13, Blood Urea Nitrogen 12, Creatinine 0.71, Estimat Glomerular Filtration Rate > 60, BUN/Creatinine Ratio 17, Glucose Level 120H, Calcium Level 9.0 Microbiology 08/11/17 Blood Culture - Preliminary, Resulted No growth A/P: Assessment: Dyspnea - multifactorial r/t acute on chronic diastolic CHF, ac exacerbation of COPD, obesity-hypoventilation syndrome, pulmonary hypertension Acute on chronic diastolic CHF Ac exacerbation of COPD - pulmonary services managing Obesity-hypoventilation syndrome with severe pulmonary hypertension - Dr. Jones managing FELIPA of July 31, [address] Boyd at [facility] showed LVEF 60%. LA mildly enlarged. Mild MR and TR insufficiency. No evidence of thrombus. Intolerance to oral anticoag: warfarin (nose bleeds and hemoptysis), apixaban ( GI bleed), rivaroxaban (hemoptysis). 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 Boyd at [facility] - maintaining SR (Was discharged on Amiodarone, but she is not currently taking) MPI of July 2015 done at [facility] is noted to be "normal" in the records we reviewed Cardiac cath in 2004 done in [place], [place] which is noted to be "normal" in the records we reviewed from [facility] Cellulitis bilat LE - management by wound care and medical services Hypoxemia, has been using oxygen at home, refusing BiPAP Obstructive sleep apnea, intolerant to C Pap Obesity, BMI 64. History of peripheral arterial disease, underwent intervention by Dr. Rodriguez on her leg after an injury done about 10 years ago. H/O tobaccoism - quit 2012 HLD - managed by Dr. 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 Gen malaise and shortness of breath, slowly improving Cor: reg Lungs: fair to good bilat air entry Legs: moderate pitting and nonpitting edema A&R * As documented in our note above that I updated (italics) and as noted below * I reviewed her records, examined him and spoke with her * Continue current regimen * Monitor labs ESDRAS CA Aug 14, 2017 11:14 EDILIA GOMEZ MD [facility] Aug 14, 2017 17:23
[2017-08-14 12:00] VITALS: BP 111/59
[2017-08-14] MEDS ORDERED: KCL 20 MEQ TAB (K-DUR) PO NR (12:15)
--- NOTE | 2017-08-14 12:35 | Progress Note (SOAP) ---
Subjective Date Seen by Provider: Aug 14, 2017 Time Seen by Provider: 12:32 Subjective/Events-last exam Fwup Pulmonary Edema/Acute on Chronic Diastolic CHF, RLE cellulitis with ulcer, COPD, Paroxysmal atrial fibrillation. Right leg not as sore. Breathing is improved after diuresis today. Focused Exam Lactate Level 08/11/17 17:27: Lactic Acid Level 1.08 Objective Exam Vital Signs Date Time Temp Pulse Resp B/P (MAP) Pulse Ox O2 Delivery O2 Flow Rate FiO2 08/14/17 12:00 97.8 89 18 111/59 (76) 90 Vapotherm 95.00 25.00 08/14/17 10:47 91 Vapotherm 15.00 70 08/14/17 08:00 99.3 78 18 122/84 (97) 92 Vapotherm 95.00 25.00 08/14/17 07:00 74 08/14/17 06:56 90 Vapotherm 25.00 95 08/14/17 05:00 97.8 71 19 152/65 (94) 91 Vapotherm 95.00 25.00 08/14/17 01:49 90 Vapotherm 25.00 95 08/14/17 01:00 64 08/14/17 00:00 98.6 70 19 136/54 (81) 95 Vapotherm 95.00 25.00 08/13/17 22:27 94 Vapotherm 25.00 95 08/13/17 20:55 Vapotherm 25.00 95 08/13/17 20:00 97.5 74 20 139/63 (88) 95 Vapotherm 95.00 25.00 08/13/17 19:07 94 Vapotherm 25.00 95 08/13/17 19:03 74 08/13/17 16:00 98.7 67 20 119/57 (77) 95 Vapotherm 95.00 25.00 08/13/17 14:21 92 Vapotherm 25.00 95 08/13/17 13:00 72 I & O 08/14/17 07:00 Intake Total 3705 ml Output Total 5240 ml Balance -1535 ml Capillary Refill : Less Than 3 Seconds General Appearance: No Apparent Distress Neck: Supple Respiratory: Lungs Clear, Decreased Breath Sounds Cardiovascular: Regular Rate, Rhythm, Systolic Murmur Gastrointestinal: normal bowel sounds, non tender, soft Extremity: Inflammation (right posterior calf) Neurologic/Psychiatric: Alert, Oriented x3 Skin: Ecchymosis (with bruising to right lower lateral leg just below ulcerative lesion of calf), Erythema (papules scattered to right lower leg) Results Lab Laboratory Tests 08/14/17 05:40: Sodium Level 142, Potassium Level 3.5L, Chloride Level 93L, Carbon Dioxide Level 37H, Anion Gap 12, Blood Urea Nitrogen 11, Creatinine 0.62, Estimat Glomerular Filtration Rate > 60, BUN/Creatinine Ratio 18, Glucose Level 97, Calcium Level 8.4L, Total Bilirubin 1.9H, Aspartate Amino Transf (AST/SGOT) 13, Alanine Aminotransferase (ALT/SGPT) 16, Alkaline Phosphatase 50, Total Protein 5.4L, Albumin 2.8L Microbiology 08/11/17 Blood Culture - Preliminary, Resulted No growth Assessment/Plan Assessment/Plan Assess & Plan/Chief Complaint 1. Acute Pulmonary Edema/Acute on Chronic Diastolic CHF--continue with IV lasix for diuresis 2. Acute Respiratory Distress with Hypoxia--down to Vapotherm 3. Acute RLE Ulcer--continue Rocephin and Zovirax and biopsy today by wound care 4. Paroxysmal Atrial Fibrillation--S/P cardioversion 5. COPD--stable Clinical Quality Measures Admission Status Admission Dx 1. Acute Respiratory Failure with Hypoxia--admit on BIPAP 2. Pulmonary Edema--Acute on Chronic Diastolic Congestive Heart Failure--admit on IV lasix 3. COPD--start SVNS 4. Right Lower Extremity Shingles with secondary infection--start IV acyclovir and monitor redness, will DC antibiotics tomorrow if WBC count stable/afebrile and no worsening erythema 5. Paroxysmal Atrial Fibrillation--S/P cardioversion--cover with lovenox and resume home meds and consult cardiology DVT/VTE Risk/Contraindication: Risk Factor Score Per Nursin RFS Level Per Nursing on Admit: 4+=Very High DEANN BUCKNER DO Aug 14, 2017 12:34
--- NOTE | 2017-08-14 13:57 | Physical Therapy Evaluation ---
PT Evaluation-General Medical Diagnosis Admission Date Aug 11, 2017 at 21:51 Medical Diagnosis: pulmonary edema/cellulitis right LE Onset Date: Aug 11, 2017 Therapy Diagnosis Therapy Diagnosis: debility/weakness Height/Weight Height (Feet): 5 Height (Inches): 3.00 Weight (Pounds): 363 Weight (Ounces): 7.0 Precautions Precautions/Isolations: Fall Prevention, Standard Precautions Weight Bear Status Right Lower Extremity: Right Full Weight Bearing Left Lower Extremity: Left Full Weight Bearing Referral Physician: Doc Reason for Referral: Evaluation/Treatment Medical History Pertinent Medical History: Atrial Fib, COPD, Heart Failure, Smoking Additional Medical History wears 4L O2 at home Current History ED secondary to SOB, cellulitis/acute respiratory distress Reviewed History: Yes Social History Home: Single Level Current Living Status: Alone Prior/Core FIM Prior Level of Function Functional [place] Measure 0=Not Assessed/NA 4=Minimal Assistance 1=Total Assistance 5=Supervision or Setup 2=Maximal Assistance 6=Modified [place] 3=Moderate Assistance 7=Complete [place] Bed Mobility: 6 Transfers (B,C,W/C) (FIM): 6 Gait: 7 PT Evaluation-Current Subjective Patient agrees to PT. Pain Numeric Pain Scale: 0-No Pain Location: No Pain Reported Objective Patient Orientation: Normal For Age Problem Solving: Fair Attachments: Oxygen (vapotherm 70%15L), Larkin Catheter ROM/Strength ROM Lower Extremities bilateral limited secondary to morbid obesity Strength Lower Extremities 4/5 grossly bilaterally Integumentary/Posture Integumentary multiple bilateral LE wounds Bladder Incontinence: Larkin Cath Posture WFL Neuromuscular (Tone, Coordination, Reflexes) grossly intact Sensory Vision: Functional Hearing: Functional Sensation Right Lower Extremit: Intact Sensation Left Lower Extremity: Intact Transfers Functional [place] Measure 0=Not Assessed/NA 4=Minimal Assistance 1=Total Assistance 5=Supervision or Setup 2=Maximal Assistance 6=Modified [place] 3=Moderate Assistance 7=Complete [place] Transfers (B, C, W/C) (FIM): 6 Scootin Supine to/from Sit: 6 Sit to/from Stand: 6 modified independent with all mobility (limited mobility due to restriction of vapotherm. Gait Mode of Locomotion: Walk Anticipated Mode of Locomotion: Walk Balance Sitting Static: Normal Sitting Dynamic: Normal Standing Static: Normal Standing Dynamic: Normal Assessment/Needs 62 y.o. female, will benefit from skilled PT to address functional strength and mobility to improve current LOF and to safely return to home at maximum LOF. 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 Goals Intermediate Goals PT Intermediate Goals Time Frame: Aug 22, 2017 Transfers (B,C,W/C) (FIM): 6 Gait (FIM): 7 Gait distance (FIM): 3=150 ft Gait Level of Assist: 7 Gait Assistive Device: None PT Plan Problem List Problem List: Gait Treatment/Plan Treatment Plan: Continue Plan of Care Treatment Plan: Bed Mobility, Education, Functional Strength, Gait, Safety, Therapeutic Exercise, Transfers Treatment Duration: Aug 22, 2017 Frequency: 6 times per week Estimated Hrs Per Day: .25 hour per day Patient and/or Family Agrees t: Yes Time/GCodes Time In: 1327 Time Out: 1339 Total Billed Treatment Time: 12 Total Billed Treatment 1 visit EVModC 12 min NAGI SEN PT Aug 14, 2017 13:57
--- NOTE | 2017-08-14 15:10 | Occ Therapy Progress Note ---
Therapy Progress Note OT order received. Chart reviewed. Attempted to see pt. Pt. in midst of wound /bandage changes. Will attempt back at later time. 1500 1, visit ALISON MONTEZ OT Aug 14, 2017 15:10
[2017-08-14 15:44] LABS: BUN/CREATININE RATIO 17; CARBON DIOXIDE 38 MMOL/L (21-32); CHLORIDE 90 MMOL/L (98-107); CREATININE SERUM 0.71 MG/DL (0.60-1.30); GFR ESTIMATED > 60; GLUCOSE 120 MG/DL (70-105); POTASSIUM 3.9 MMOL/L (3.6-5.0); SODIUM 141 MMOL/L (135-145)
[2017-08-14 16:13] VITALS: BP 110/56
[2017-08-14 19:42] VITALS: BP 123/58
[2017-08-14] MEDS: HYDROcodone/APAP 7.5 MG/325 MG (LORTAB, LORCET PLUS) TABLET PO PRN (20:42)
[2017-08-14] MEDS: cefTRIAXone 1 GM/NS 50 ML IVPB IV SCH ×2 (22:35)
[2017-08-15] VITALS (7 sets, daily range): BP systolic 118–150; BP diastolic 56–74
[2017-08-15] MEDS: RT-ALBUTEROL/IPRATROPIUM 3 ML (DUONEB) VIAL INH SCH ×5 (01:44→19:41)
[2017-08-15] MEDS: HYDROcodone/APAP 7.5 MG/325 MG (LORTAB, LORCET PLUS) TABLET PO PRN ×2 (04:45→12:31)
[2017-08-15] MEDS: ACYCLOVIR INJECTION 500 MG in NS (IVPB) 250 ML IV SCH ×3 (05:11→22:12)
[2017-08-15] MEDS: KCL 20 MEQ TAB (K-DUR) PO SCH ×2 (05:41→05:44)
--- NOTE | 2017-08-15 06:39 | Pulmonary Progress Note ---
Subjective Time Seen by Provider: 06:39 Subjective/Events-last exam Pt is noncompliant refusing BiPAP. Exam Exam Vital Signs Date Time Temp Pulse Resp B/P (MAP) Pulse Ox O2 Delivery O2 Flow Rate FiO2 08/15/17 06:07 92 Vapotherm 28.00 95 08/15/17 04:55 97.8 96 20 121/56 (77) 89 Vapotherm 92.00 18.00 08/15/17 01:44 93 Vapotherm 18.00 92 08/15/17 01:00 83 08/15/17 00:19 98.0 70 17 118/60 (79) 91 Vapotherm 95.00 18.00 08/14/17 22:35 93 Vapotherm 18.00 95 08/14/17 20:40 Vapotherm 18.00 95 08/14/17 19:42 98.0 79 20 123/58 (79) 92 Vapotherm 95.00 18.00 08/14/17 19:00 81 08/14/17 18:51 95 Vapotherm 18.00 95 08/14/17 16:34 84 Vapotherm 15.00 70 08/14/17 16:13 98.5 87 20 110/56 (74) 90 Vapotherm 95.00 20.00 08/14/17 14:16 90 Vapotherm 15.00 70 08/14/17 13:00 94 08/14/17 12:00 97.8 89 18 111/59 (76) 90 Vapotherm 95.00 25.00 08/14/17 10:47 91 Vapotherm 15.00 70 08/14/17 08:00 Vapotherm 25.00 08/14/17 08:00 99.3 78 18 122/84 (97) 92 Vapotherm 95.00 25.00 08/14/17 07:00 74 08/14/17 06:56 90 Vapotherm 25.00 95 I & O 08/15/17 07:00 Intake Total 3040 ml Output Total 8200 ml Balance -5160 ml General Appearance: No Apparent Distress HEENT: PERRL/EOMI, TMs Normal, Normal ENT Inspection, Pharynx Normal Neck: Supple Respiratory: Lungs Clear, Decreased Breath Sounds Cardiovascular: Regular Rate, Rhythm, Systolic Murmur Capillary Refill: Less Than 3 Seconds Gastrointestinal: normal bowel sounds, non tender, soft Extremity: Inflammation (right posterior calf) Neurologic/Psychiatric: Alert, Oriented x3 Skin: Ecchymosis (with bruising to right lower lateral leg just below ulcerative lesion of calf), Erythema (papules scattered to right lower leg) Lymphatic: No Adenopathy Results Lab Laboratory Tests 08/14/17 05:40 08/14/17 15:16 Assessment/Plan Assessment/Plan Acute on chronic respiratory failure -noninvasive ventilation - pt is still requiring 90% oxygen via Vapotherm -She refuses BiPAP at night. I doubt she would use home vent to mask. Will continue to evaluate her for it as she improves. -SVNs, oxygen therapy Acute pulmonary edema with pleural effusions -Pt is still requiring a lot of oxygen. Imaging is suggestive of pulmonary edema. Will start Bumex 2mg daily and continue to monitor. -Will give bumex 2mg daily Morbid obesity with OHS -Pt will benefit from home vent to mask. --She refuses BiPAP at night. I doubt she would use home vent to mask. Will continue to evaluate her for it as she improves. debility Atelectasis -Increase activity Pt is poorly compliant, morbidly obese, and still continues to require 90% high flow oxygen. She is currently a DNR. She refuses BiPAP therapy. Will consult hospice for education. 233 TARUN SANDOVAL DO Aug 15, 2017 06:39
[2017-08-15] MEDS ORDERED: BUMETANIDE 1 MG/4 ML (BUMEX) VIAL IV ONE (09:00)
[2017-08-15] MEDS ORDERED: KCL 10 MEQ TAB (MICRO K) PO ONE (09:00)
[2017-08-15] MEDS: SERTRALINE 50 MG (ZOLOFT) TABLET PO SCH (09:13)
[2017-08-15] MEDS: MONTELUKAST 10 MG (SINGULAIR) TAB PO SCH (09:13)
[2017-08-15] MEDS: PANTOPRAZOLE 40 MG (PROTONIX) TAB PO SCH (09:13)
[2017-08-15] MEDS: MAGNESIUM OXIDE (MAG-OX)400 MG TAB PO SCH ×2 (09:13→18:22)
[2017-08-15] MEDS: CARVEDILOL 6.25 MG (COREG) TAB PO SCH ×2 (09:13→22:15)
[2017-08-15] MEDS: FAMOTIDINE 20 MG (PEPCID) TABLET PO SCH ×2 (09:13→22:15)
[2017-08-15] MEDS: ENOXAPARIN 60 MG/0.6 ML (LOVENOX) SYR SC SCH ×2 (09:13→22:16)
--- NOTE | 2017-08-15 10:43 | Wound Care Assessment ---
Wound Care Assessment Date Seen by Provider: Aug 14, 2017 Time Seen by Provider: 15:20 Chief Complaint R posterior calf lesion. HPI The patient is a 62 year old female with a painful ulcerated area of R posterior calf and numerous new small violaceous macules on both calves. There is a new macule on anterior R calf that has increased markedly in the last 24 hours. An incisional biopsy of this is carried out sterilely under local anesthesia at the bedside. Past Medical History: Admits Heart Disease (Atrial fibrillation, congestive heart failure.), Admits Peripheral Artery Disease (Repair of L leg arteries.) Smoking Status: Former Smoker Recreational Drug Use: No Alcohol Use: Denies Use Review of Systems Pulmonary: Dyspnea, Cough Cardiovascular: Orthopnea Musculoskeletal: leg pain Exam Vital Signs Date Time Temp Pulse Resp B/P (MAP) Pulse Ox O2 Delivery O2 Flow Rate FiO2 08/15/17 08:00 97.4 71 20 130/60 (83) 92 Vapotherm 92.00 18.00 08/15/17 06:07 95 Capillary Refill : Less Than 3 SecondsLess Than 3 Seconds General Appearance: mild distress Respiratory: no accessory muscle use Skin: other (Multiple bilateral calf macules, increasing in size and number.) With the patient in the supine position, following an appropriate time out, the R calf was prepped with Betadine solution, anesthetized with 2% lidocaine injectable. A transverse elliptical incisional biopsy was obtained and submitted in formalin and Larry's solution. The wound was closed with 4-0 Nylon vertical mattress interrupted sutures and a sterile dressing applied. The patient tolerated the procedure well. Results Laboratory Tests 08/14/17 15:16: Sodium Level 141, Potassium Level 3.9, Chloride Level 90L, Carbon Dioxide Level 38H, Anion Gap 13, Blood Urea Nitrogen 12, Creatinine 0.71, Estimat Glomerular Filtration Rate > 60, BUN/Creatinine Ratio 17, Glucose Level 120H, Calcium Level 9.0 Microbiology 08/11/17 Blood Culture - Preliminary, Resulted No growth Assessment/Plan/Dx 1. R posterior calf ulcer, partial thickness, uncertain etiology, may represent shingles. although it has an unusual distribution. 2. congestive heart failure, edema of BLE. 3. R/O vasculitis. 4. Morbid obesity. Plan: Elevate, non-adherent dressings, incisional biopsy to assist in diagnosis. LELAND DOBBS MD Aug 15, 2017 10:43
--- NOTE | 2017-08-15 10:49 | Physical Therapy Daily Note ---
PT Daily Note-Current Subjective Patient agrees to PT. She is currently on 95% at 28L vapotherm Pain Numeric Pain Scale: 3 Location: Right Location Body Site: Knee Pain Description: Chronic Mental Status Patient Orientation: Normal For Age Attachments: Oxygen (95%/28L vapotherm) Transfers Functional [place] Measure 0=Not Assessed/NA 4=Minimal Assistance 1=Total Assistance 5=Supervision or Setup 2=Maximal Assistance 6=Modified [place] 3=Moderate Assistance 7=Complete IndependenceIRFPAI Quality Coding Scale 6 Independent with activity with or without an assistive device 5 Patient requires set up or clean up by helper. Patient completes activity by themselves 4 Supervision or touching assist (CGA). [place] provide cues , steadying assist 3 The helper provides less than half the effort to complete the activity 2 The helper provides more than half the effort to complete the activity 1 Dependent. The helper does all the effort to complete an activity 7 Patient refused to complete or attempt activity 9 The patient did not perform the activity before the current illness or injury 88 Not attempted due to Medical conditions or safety concerns Transfers (B, C, W/C) (FIM): 5 Scootin Supine to/from Sit: 5 Sit to/from Stand: 5 Weight Bearing Right Lower Extremity: Right Full Weight Bearing Left Lower Extremity: Left Full Weight Bearing Exercises Seated Therapy Exercises: Ankle pumps, Long arc quads Seated Reps: 20 Standing: Marching Standing Reps: 20 (3 sets) Assessment SAO2 decreased to 81% during standing exercises on vapotherm. Patient remains up in recliner. Per patient and RN, patient refuses to wear Bipap or Cpap. 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 Time Frame: Aug 22, 2017 Transfers (B,C,W/C) (FIM): 6 Gait (FIM): 7 Gait distance (FIM): 3=150 ft Gait Level of Assist: 7 Gait Assistive Device: None PT Plan Treatment/Plan Treatment Plan: Continue Plan of Care Treatment Plan: Bed Mobility, Education, Functional Strength, Gait, Safety, Therapeutic Exercise, Transfers Treatment Duration: Aug 22, 2017 Frequency: 6 times per week Estimated Hrs Per Day: .25 hour per day Patient and/or Family Agrees t: Yes Time/GCodes Time In: 1000 Time Out: 1015 Total Billed Treatment Time: 15 Total Billed Treatment 1 visit FA 15 min NAGI SEN PT Aug 15, 2017 10:49
[2017-08-15] MEDS ORDERED: methylPREDNISolone 125 MG (Solu-MEDROL) VIAL IVP NR (12:00)
--- NOTE | 2017-08-15 12:01 | Progress Note (SOAP) ---
Subjective Date Seen by Provider: Aug 15, 2017 Time Seen by Provider: 11:58 Subjective/Events-last exam Fwup Pulmonary Edema/Acute on Chronic Diastolic CHF, RLE cellulitis with ulcer, COPD, Paroxysmal atrial fibrillation. Had biopsy of leg lesion. Up in chair on vapotherm. Objective Exam Vital Signs Date Time Temp Pulse Resp B/P (MAP) Pulse Ox O2 Delivery O2 Flow Rate FiO2 08/15/17 10:26 91 Vapotherm 25.00 90 08/15/17 08:00 Vapotherm 28.00 95 08/15/17 08:00 97.4 71 20 130/60 (83) 92 Vapotherm 92.00 18.00 08/15/17 07:00 70 08/15/17 06:07 92 Vapotherm 28.00 95 08/15/17 04:55 97.8 96 20 121/56 (77) 89 Vapotherm 92.00 18.00 08/15/17 01:44 93 Vapotherm 18.00 92 08/15/17 01:00 83 08/15/17 00:19 98.0 70 17 118/60 (79) 91 Vapotherm 95.00 18.00 08/14/17 22:35 93 Vapotherm 18.00 95 08/14/17 20:40 Vapotherm 18.00 95 08/14/17 19:42 98.0 79 20 123/58 (79) 92 Vapotherm 95.00 18.00 08/14/17 19:00 81 08/14/17 18:51 95 Vapotherm 18.00 95 08/14/17 16:34 84 Vapotherm 15.00 70 08/14/17 16:13 98.5 87 20 110/56 (74) 90 Vapotherm 95.00 20.00 08/14/17 14:16 90 Vapotherm 15.00 70 08/14/17 13:00 94 08/14/17 12:00 97.8 89 18 111/59 (76) 90 Vapotherm 95.00 25.00 I & O 08/15/17 07:00 Intake Total 3040 ml Output Total 8200 ml Balance -5160 ml Capillary Refill : Less Than 3 SecondsLess Than 3 Seconds General Appearance: No Apparent Distress Neck: Supple Respiratory: Lungs Clear Cardiovascular: Regular Rate, Rhythm Gastrointestinal: normal bowel sounds, non tender, soft Extremity: Non Tender, Pedal Edema (with dressing to right LE ) Neurologic/Psychiatric: Alert, Oriented x3 Results Lab Laboratory Tests 08/14/17 15:16: Sodium Level 141, Potassium Level 3.9, Chloride Level 90L, Carbon Dioxide Level 38H, Anion Gap 13, Blood Urea Nitrogen 12, Creatinine 0.71, Estimat Glomerular Filtration Rate > 60, BUN/Creatinine Ratio 17, Glucose Level 120H, Calcium Level 9.0 Microbiology 08/11/17 Blood Culture - Preliminary, Resulted No growth Assessment/Plan Assessment/Plan Assess & Plan/Chief Complaint 1. Acute Pulmonary Edema/Acute on Chronic Diastolic CHF--continue with IV lasix for diuresis 2. Acute Respiratory Distress with Hypoxia--down to Vapotherm 3. Acute RLE Ulcer--continue Rocephin and Zovirax and will add steroids to cover fir vasculitis since biopsy has been accomplished 4. Paroxysmal Atrial Fibrillation--S/P cardioversion 5. COPD--stable Clinical Quality Measures Admission Status Admission Dx 1. Acute Respiratory Failure with Hypoxia--admit on BIPAP 2. Pulmonary Edema--Acute on Chronic Diastolic Congestive Heart Failure--admit on IV lasix 3. COPD--start SVNS 4. Right Lower Extremity Shingles with secondary infection--start IV acyclovir and monitor redness, will DC antibiotics tomorrow if WBC count stable/afebrile and no worsening erythema 5. Paroxysmal Atrial Fibrillation--S/P cardioversion--cover with lovenox and resume home meds and consult cardiology DVT/VTE Risk/Contraindication: Risk Factor Score Per Nursin RFS Level Per Nursing on Admit: 4+=Very High DEANN BUCKNER DO Aug 15, 2017 12:01
--- NOTE | 2017-08-15 14:48 | Occupational Therapy Eval ---
OT Evaluation-General/PLF Medical Diagnosis Admission Date Aug 11, 2017 at 21:51 Medical Diagnosis: pulmonary edema/cellulitis right LE Onset Date: Aug 11, 2017 Therapy Diagnosis Therapy Diagnosis: decreased activity tolerance Height/Weight Height (Feet): 5 Height (Inches): 3.00 Weight (Pounds): 363 Weight (Ounces): 7.0 Precautions Precautions/Isolations: Contact Isolation, Fall Prevention, Standard Precautions, Pressure Ulcer Safety Interventions: None Referral Physician: Doc Referral Reason: Evaluation/Treatment Medical History Pertinent Medical History: Atrial Fib, COPD, Heart Failure, Smoking Additional Medical History L TKR. Morbid obesity. Asthma, COPD. DVT. Bilat cataract surgery. Current History Admitted with cellulitis on R leg, CHF. It may be shingles - waiting for biopsy results. On 85% vapotherm Reviewed History: Yes Social History Home: Single Level Current Living Status: Alone ADL-Prior Level of Function ADL PLOF Comments Pt reported that she was able to manage her basic self care needs prior to illness and care for her dog and cat OT Current Status Subjective Pt seen in room, up at EOB, agreeable to OT. No pain mentioned. Appearance Alert, cooperative Mental Status/Objective Attachments: Central Line, Larkin Catheter, IV, Oxygen, Telemetry Current Upper Extremity ROM Grossly WFL bilat Upper Extremity Strength Grossly WFL bilat ADL-Treatment ADL-Current Pt reported that she has not had a problem managing meals or grooming while in the hospital. She has been getting up to use BSC with SBA and said that she was able to manage clothing and hygiene. She has a Larkin catheter. She does not anticipate any problems with ADLs once she is discharged. Per PT note, is transferring SBA Functional [place] Measure 0=Not Assessed/NA 4=Minimal Assistance 1=Total Assistance 5=Supervision or Setup 2=Maximal Assistance 6=Modified [place] 3=Moderate Assistance 7=Complete IndependenceIRFPAI Quality Coding Scale 6 Independent with activity with or without an assistive device 5 Patient requires set up or clean up by helper. Patient completes activity by themselves 4 Supervision or touching assist (CGA). [place] provide cues , steadying assist 3 The helper provides less than half the effort to complete the activity 2 The helper provides more than half the effort to complete the activity 1 Dependent. The helper does all the effort to complete an activity 7 Patient refused to complete or attempt activity 9 The patient did not perform the activity before the current illness or injury 88 Not attempted due to Medical conditions or safety concerns Education OT Patient Education: Rehab process OT Education/Plan Problem List/Assessment Assessment: No Skilled OT Needs ID'd No skilled needs identified. Pt has good UE strength and transfers without devices. Discharge Recommendations Plan/Recommendations: Discontinue OT Treatment Plan/Plan of Care Treatment,Training & Education: No Patient would benefit from OT for education, treatment and training to promote independence in ADL's, mobility, safety and/or upper extremity function for ADL' s. Treatment Duration: Aug 15, 2017 Frequency: 1 time per week Estimated Hrs Per Day: Other Agreement: Yes Rehab Potential: Good Time/GCodes Start Time: 14:15 Stop Time: 14:30 Total Time Billed (hr/min): 15 Billed Treatment Time visit, 15 minutes evaluation low intensity CIRILO ALVES OT Aug 15, 2017 14:48
[2017-08-15] MEDS: predniSONE 20 MG TAB PO SCH (22:15)
[2017-08-15] MEDS: cefTRIAXone 1 GM/NS 50 ML IVPB IV SCH ×2 (23:37)
[2017-08-16] MEDS: HYDROcodone/APAP 7.5 MG/325 MG (LORTAB, LORCET PLUS) TABLET PO PRN ×2 (00:08→14:25)
[2017-08-16 00:15] VITALS: BP 139/67
[2017-08-16] MEDS: RT-ALBUTEROL/IPRATROPIUM 3 ML (DUONEB) VIAL INH SCH ×8 (00:47→22:34)
[2017-08-16 04:00] VITALS: BP 128/64
[2017-08-16] MEDS: KCL 20 MEQ TAB (K-DUR) PO SCH (06:22)
[2017-08-16] MEDS: ACYCLOVIR INJECTION 500 MG in NS (IVPB) 250 ML IV SCH ×3 (06:23→21:50)
[2017-08-16 08:20] VITALS: BP 131/72
[2017-08-16] MEDS: MONTELUKAST 10 MG (SINGULAIR) TAB PO SCH (08:58)
[2017-08-16] MEDS: PANTOPRAZOLE 40 MG (PROTONIX) TAB PO SCH (08:58)
[2017-08-16] MEDS: ENOXAPARIN 60 MG/0.6 ML (LOVENOX) SYR SC SCH ×2 (08:58→21:50)
[2017-08-16] MEDS: CARVEDILOL 6.25 MG (COREG) TAB PO SCH ×2 (08:58→21:51)
[2017-08-16] MEDS: SERTRALINE 50 MG (ZOLOFT) TABLET PO SCH (08:58)
[2017-08-16] MEDS: predniSONE 20 MG TAB PO SCH (08:58)
[2017-08-16] MEDS: MAGNESIUM OXIDE (MAG-OX)400 MG TAB PO SCH ×2 (08:58→18:37)
[2017-08-16] MEDS: FAMOTIDINE 20 MG (PEPCID) TABLET PO SCH ×2 (08:59→21:51)
--- NOTE | 2017-08-16 10:00 | Physical Therapy Daily Note ---
PT Daily Note-Current Subjective (R) knee pain 8/10 per pt. Pt agreeable to participate with HYDRAULIC HAMMER OPERATOR until her breakfast arrives. Pt agreeable to get up to chair. Mental Status Patient Orientation: Person, Place, Situation Transfers Functional [place] Measure 0=Not Assessed/NA 4=Minimal Assistance 1=Total Assistance 5=Supervision or Setup 2=Maximal Assistance 6=Modified [place] 3=Moderate Assistance 7=Complete IndependenceIRFPAI Quality Coding Scale 6 Independent with activity with or without an assistive device 5 Patient requires set up or clean up by helper. Patient completes activity by themselves 4 Supervision or touching assist (CGA). [place] provide cues , steadying assist 3 The helper provides less than half the effort to complete the activity 2 The helper provides more than half the effort to complete the activity 1 Dependent. The helper does all the effort to complete an activity 7 Patient refused to complete or attempt activity 9 The patient did not perform the activity before the current illness or injury 88 Not attempted due to Medical conditions or safety concerns Mod (I) transfer to EOB, 5-7steps to bedside chair. Weight Bearing Right Lower Extremity: Right Full Weight Bearing Left Lower Extremity: Left Full Weight Bearing Gait Training Pt amb 5-6 steps from bed to chair, SBA Exercises Supine Ex: Ankle pumps, Quad Set, Straight leg raise Supine Reps: 10 Seated Therapy Exercises: Long arc quads Seated Reps: 20 Assessment Current Status: Fair Progress Pt on O2 20L/min, SOB but conversing throughout. O2 dropped to 84% with transfer to chair. Pt rebounded to 88% after a few min. Pt allowed to purse lip breath. BP taken per nurse aid at 131/75. Pt without complaint, breakfast arrived. Pt up in chair with call light and all needs met. PT Assembly Repairer Goals Senior Living Goals PT Assembly Repairer Goals Time Frame: Aug 22, 2017 Transfers (B,C,W/C) (FIM): 6 Gait (FIM): 7 Gait distance (FIM): 3=150 ft Gait Level of Assist: 7 Gait Assistive Device: None PT Plan Treatment/Plan Treatment Plan: Continue Plan of Care Treatment Plan: Bed Mobility, Education, Functional Strength, Gait, Safety, Therapeutic Exercise, Transfers Treatment Duration: Aug 22, 2017 Frequency: 6 times per week Estimated Hrs Per Day: .25 hour per day Patient and/or Family Agrees t: Yes Time/GCodes Time In: 800 Time Out: 815 Total Billed Treatment Time: 15 Total Billed Treatment 1, LYN CLARK CPTA Aug 16, 2017 10:00
--- NOTE | 2017-08-16 11:58 | Progress Note-Hospitalist ---
Subjective HPI/CC On Admission Date Seen by Provider: Aug 16, 2017 Time Seen by Provider: 11:00 Subjective/Events-last exam Patient doing about the same On Vapotherm Acute on chronic respiratory failure Will start low dose of IV steroids since biopsy was taken yesterday and IV antibiotics maintained Dressing to right posterior calf ulceration maintained Denies any current concerns Review of Systems General: Fatigue, Malaise Pulmonary: Dyspnea Objective Exam Vital Signs Vital Signs Date Time Temp Pulse Resp B/P (MAP) Pulse Ox O2 Delivery O2 Flow Rate FiO2 08/16/17 08:20 97.2 73 24 131/72 (91) 88 Vapotherm 20.00 08/16/17 06:27 85 Capillary Refill : Less Than 3 SecondsLess Than 3 Seconds General Appearance: No Apparent Distress, WD/WN, Chronically ill, Obese Respiratory: No Accessory Muscle Use, No Respiratory Distress, Decreased Breath Sounds Cardiovascular: Regular Rate, Rhythm Extremity: Other (right leg with dressing intact) Neurologic/Psychiatric: Alert, Oriented x3, No Motor/Sensory Deficits, Normal Mood/Affect Results/Procedures Lab Patient resulted labs reviewed. Assessment/Plan Assessment and Plan Assess & Plan/Chief Complaint Right lower leg cellulitis versus vasculitis s/p biopsy Acute on chronic respiratory failure on Vapotherm Morbid obesity BMI 64 Diagnosis/Problems Diagnosis/Problems (1) Cellulitis of right leg Status: Acute (2) ARCHIE (obstructive sleep apnea) Status: Chronic Assessment & Plan: non-compliant with CPAP (3) Non-compliance with treatment Status: Chronic (4) Skin ulcer Status: Acute Qualifiers: Non-pressure ulcer stage: limited to breakdown of skin Qualified Codes: L98.491 - Non-pressure chronic ulcer of skin of other sites limited to breakdown of skin (5) DVT prophylaxis Status: Acute (6) Pulmonary edema Status: Acute (7) CHF (congestive heart failure) Status: Acute (8) Morbid obesity with BMI of 60.0-69.9, adult Status: Chronic Clinical Quality Measures DVT/VTE Risk/Contraindication: Risk Factor Score Per Nursin RFS Level Per Nursing on Admit: 4+=Very High TERESITA ANTONIO DO Aug 16, 2017 11:58
[2017-08-16 12:00] VITALS: BP 139/78
[2017-08-16] MEDS: methylPREDNISolone 40 MG/ML (Solu-MEDROL) VIAL IV SCH ×2 (14:09→23:46)
[2017-08-16 16:45] VITALS: BP 129/80
[2017-08-16 20:45] VITALS: BP 136/73
[2017-08-16] MEDS: cefTRIAXone 1 GM/NS 50 ML IVPB IV SCH ×2 (23:46)
[2017-08-17] VITALS: BP 120/66
[2017-08-17] MEDS: HYDROcodone/APAP 7.5 MG/325 MG (LORTAB, LORCET PLUS) TABLET PO PRN ×2 (01:02→14:18)
[2017-08-17] MEDS: RT-ALBUTEROL/IPRATROPIUM 3 ML (DUONEB) VIAL INH SCH ×6 (02:26→22:20)
[2017-08-17 04:00] VITALS: BP 154/77
[2017-08-17] MEDS: KCL 20 MEQ TAB (K-DUR) PO SCH (06:23)
[2017-08-17] MEDS: ACYCLOVIR INJECTION 500 MG in NS (IVPB) 250 ML IV SCH ×3 (06:24→21:04)
[2017-08-17 06:55] LABS: BASOPHILS % (AUTO) 0 % (0-10); EOSINOPHILS % (AUTO) 0 % (0-10); HEMATOCRIT 39 % (35-52); HEMOGLOBIN 12.9 G/DL (11.5-16.0); LYMPHOCYTES # (AUTO) 0.6 X 10^3 (1.0-4.0); LYMPHOCYTES % (AUTO) 8 % (12-44); MEAN CORPUSCULAR HEMOGLOBIN 34 PG (25-34); MEAN CORPUSCULAR HGB CONC 33 G/DL (32-36); MEAN CORPUSCULAR VOLUME 102 FL (80-99); MEAN PLATELET VOLUME 11.9 FL (7.4-10.4); MONOCYTES # (AUTO) 0.2 X 10^3 (0.0-1.0); MONOCYTES % (AUTO) 3 % (0-12); NEUTROPHILS # (AUTO) 6.6 X 10^3 (1.8-7.8); NEUTROPHILS % (AUTO) 89 % (42-75); PLATELET COUNT 156 10^3/uL (130-400); RED BLOOD COUNT 3.83 10^6/uL (4.35-5.85); RED CELL DISTRIBUTION WIDTH 14.9 % (10.0-14.5); WHITE BLOOD COUNT 7.4 10^3/uL (4.3-11.0)
[2017-08-17 07:13] LABS: ANISOCYTOSIS SLIGHT; BAND NEUTROPHILS 1 %; LYMPHOCYTES % (MANUAL) 7 %; MONOCYTES % (MANUAL) 10 %; NEUTROPHILS % (MANUAL) 82 %
[2017-08-17 07:23] LABS: ALANINE AMINOTRANSFERASE 37 U/L (0-55); ALBUMIN 3.2 GM/DL (3.2-4.5); ALKALINE PHOSPHATASE 63 U/L (40-136); BILIRUBIN,TOTAL 0.9 MG/DL (0.1-1.0); BUN/CREATININE RATIO 31; CALCIUM 9.4 MG/DL (8.5-10.1); CARBON DIOXIDE 35 MMOL/L (21-32); CHLORIDE 95 MMOL/L (98-107); CREATININE SERUM 0.61 MG/DL (0.60-1.30); GFR ESTIMATED > 60; GLUCOSE 124 MG/DL (70-105); POTASSIUM 4.9 MMOL/L (3.6-5.0); SODIUM 140 MMOL/L (135-145); TOTAL PROTEIN 6.4 GM/DL (6.4-8.2)
[2017-08-17 07:30] VITALS: BP 121/76
[2017-08-17] MEDS: MAGNESIUM OXIDE (MAG-OX)400 MG TAB PO SCH ×2 (08:01→16:31)
[2017-08-17] MEDS: MONTELUKAST 10 MG (SINGULAIR) TAB PO SCH (08:01)
[2017-08-17] MEDS: FAMOTIDINE 20 MG (PEPCID) TABLET PO SCH ×2 (08:01→21:04)
[2017-08-17] MEDS: ENOXAPARIN 60 MG/0.6 ML (LOVENOX) SYR SC SCH ×2 (08:01→21:04)
[2017-08-17] MEDS: PANTOPRAZOLE 40 MG (PROTONIX) TAB PO SCH (08:01)
[2017-08-17] MEDS: SERTRALINE 50 MG (ZOLOFT) TABLET PO SCH (08:01)
[2017-08-17] MEDS: CARVEDILOL 6.25 MG (COREG) TAB PO SCH ×2 (08:02→21:04)
--- NOTE | 2017-08-17 11:01 | Progress Note-Hospitalist ---
Subjective HPI/CC On Admission Date Seen by Provider: Aug 17, 2017 Time Seen by Provider: 10:30 Subjective/Events-last exam Patient doing about the same Requiring high flow Vapotherm so may need [place] or long-term care facility No pain is reported Bowels are moving Very difficult situation due to morbid obesity with BMI of 64 Review of Systems Pulmonary: Dyspnea Objective Exam Vital Signs Vital Signs Date Time Temp Pulse Resp B/P (MAP) Pulse Ox O2 Delivery O2 Flow Rate FiO2 08/17/17 14:29 94 Vapotherm 25.00 100 08/17/17 12:38 65 08/17/17 12:19 97.6 18 138/69 (92) Capillary Refill : Less Than 3 SecondsLess Than 3 Seconds General Appearance: No Apparent Distress, WD/WN, Chronically ill, Obese Respiratory: Lungs Clear, Decreased Breath Sounds Cardiovascular: Regular Rate, Rhythm, No Edema Neurologic/Psychiatric: Alert, Oriented x3, No Motor/Sensory Deficits, Normal Mood/Affect Results/Procedures Lab Laboratory Tests 08/17/17 05:39 Patient resulted labs reviewed. Assessment/Plan Assessment and Plan Assess & Plan/Chief Complaint Right lower leg cellulitis versus vasculitis s/p biopsy Acute on chronic respiratory failure on Vapotherm Morbid obesity BMI 64 Plan: PCP for disposition May need [facility] considering she still on high flow Vapotherm and having difficulty with dyspnea limiting her activities Poor prognosis due to BMI of 64 Continue low-dose IV steroids along with IV antibiotics Diagnosis/Problems Diagnosis/Problems (1) Cellulitis of right leg Status: Acute (2) ARCHIE (obstructive sleep apnea) Status: Chronic Assessment & Plan: non-compliant with CPAP (3) Non-compliance with treatment Status: Chronic (4) Skin ulcer Status: Acute Qualifiers: Non-pressure ulcer stage: limited to breakdown of skin Qualified Codes: L98.491 - Non-pressure chronic ulcer of skin of other sites limited to breakdown of skin (5) DVT prophylaxis Status: Acute (6) Pulmonary edema Status: Acute (7) CHF (congestive heart failure) Status: Acute (8) Morbid obesity with BMI of 60.0-69.9, adult Status: Chronic (9) Vasculitis Status: Acute Assessment & Plan: Presume and empirically treating with low dose IV steroids biopsy pending Clinical Quality Measures DVT/VTE Risk/Contraindication: Risk Factor Score Per Nursin RFS Level Per Nursing on Admit: 4+=Very High TERESITA ANTONIO DO Aug 17, 2017 11:01
[2017-08-17] MEDS: methylPREDNISolone 40 MG/ML (Solu-MEDROL) VIAL IV SCH (11:27)
[2017-08-17 12:19] VITALS: BP 138/69
[2017-08-17 16:30] VITALS: BP 121/66
[2017-08-17 19:55] VITALS: BP 145/70
[2017-08-18] VITALS (8 sets, daily range): BP systolic 132–154; BP diastolic 63–89
[2017-08-18] MEDS: cefTRIAXone 1 GM/NS 50 ML IVPB IV SCH ×4 (00:21→23:18)
[2017-08-18] MEDS: methylPREDNISolone 40 MG/ML (Solu-MEDROL) VIAL IV SCH ×3 (00:21→23:18)
[2017-08-18] MEDS: HYDROcodone/APAP 7.5 MG/325 MG (LORTAB, LORCET PLUS) TABLET PO PRN ×4 (00:30→23:17)
[2017-08-18] MEDS: RT-ALBUTEROL/IPRATROPIUM 3 ML (DUONEB) VIAL INH SCH ×6 (02:52→22:18)
[2017-08-18] MEDS: KCL 20 MEQ TAB (K-DUR) PO SCH (06:11)
[2017-08-18] MEDS: ACYCLOVIR INJECTION 500 MG in NS (IVPB) 250 ML IV SCH ×3 (06:11→22:12)
--- NOTE | 2017-08-18 06:59 | Pulmonary Progress Note ---
Subjective Time Seen by Provider: 07:35 Subjective/Events-last exam Pt is still requiring high flow oxygen. Exam Exam Vital Signs Date Time Temp Pulse Resp B/P (MAP) Pulse Ox O2 Delivery O2 Flow Rate FiO2 08/18/17 06:24 93 Vapotherm 22.00 80 08/18/17 06:24 60 93 08/18/17 02:52 93 Vapotherm 22.00 80 08/18/17 01:00 64 08/18/17 00:17 98.0 66 19 132/63 (86) 94 Vapotherm 80.00 20.00 08/17/17 22:20 95 Vapotherm 22.00 80 08/17/17 20:00 Vapotherm 25.00 85 08/17/17 19:55 97.6 71 20 145/70 (95) 93 Vapotherm 85.00 25.00 08/17/17 19:00 68 08/17/17 18:49 92 Vapotherm 25.00 85 08/17/17 16:30 97.1 75 20 121/66 (84) 91 Vapotherm 85.00 25.00 08/17/17 14:29 94 Vapotherm 25.00 100 08/17/17 12:38 65 08/17/17 12:19 97.6 59 18 138/69 (92) 93 Vapotherm 25.00 25.00 08/17/17 11:06 92 Vapotherm 25.00 100 08/17/17 08:00 94 Vapotherm 25.00 08/17/17 07:30 97.9 59 18 121/76 (91) 94 Vapotherm 25.00 25.00 08/17/17 06:59 58 I & O 08/18/17 07:00 Intake Total 2010 ml Output Total 2200 ml Balance -190 ml General Appearance: No Apparent Distress, WD/WN, Chronically ill, Obese HEENT: PERRL/EOMI, TMs Normal, Normal ENT Inspection, Pharynx Normal Neck: Supple Respiratory: Lungs Clear, Decreased Breath Sounds Cardiovascular: Regular Rate, Rhythm, No Edema Capillary Refill: Less Than 3 Seconds Gastrointestinal: normal bowel sounds, non tender, soft Extremity: Other (right leg with dressing intact) Neurologic/Psychiatric: Alert, Oriented x3, No Motor/Sensory Deficits, Normal Mood/Affect Skin: Ecchymosis (with bruising to right lower lateral leg just below ulcerative lesion of calf), Erythema (papules scattered to right lower leg) Lymphatic: No Adenopathy Results Lab Laboratory Tests 08/17/17 05:39 Assessment/Plan Assessment/Plan Acute on chronic respiratory failure -noninvasive ventilation - pt is still requiring 90% oxygen via Vapotherm -She refuses BiPAP at night. I doubt she would use home vent to mask. Will continue to evaluate her for it as she improves. -SVNs, oxygen therapy Acute pulmonary edema with pleural effusions -Will give bumex 2mg daily Morbid obesity with OHS -Pt will benefit from home vent to mask. --She refuses BiPAP at night. I doubt she would use home vent to mask. Will continue to evaluate her for it as she improves. debility Atelectasis -Increase activity Pt is poorly compliant, morbidly obese, and still continues to require 90% high flow oxygen. She refuses BiPAP therapy. . 233 TARUN SANDOVAL DO Aug 18, 2017 06:59
[2017-08-18] MEDS: FAMOTIDINE 20 MG (PEPCID) TABLET PO SCH ×2 (08:35→20:56)
[2017-08-18] MEDS: CARVEDILOL 6.25 MG (COREG) TAB PO SCH ×2 (08:35→20:55)
[2017-08-18] MEDS: MONTELUKAST 10 MG (SINGULAIR) TAB PO SCH (08:35)
[2017-08-18] MEDS: PANTOPRAZOLE 40 MG (PROTONIX) TAB PO SCH (08:35)
[2017-08-18] MEDS: MAGNESIUM OXIDE (MAG-OX)400 MG TAB PO SCH ×2 (08:35→18:54)
[2017-08-18] MEDS: BUMETANIDE 1 MG/4 ML (BUMEX) VIAL IV SCH (08:35)
[2017-08-18] MEDS: ENOXAPARIN 60 MG/0.6 ML (LOVENOX) SYR SC SCH ×2 (08:36→20:55)
[2017-08-18] MEDS: SERTRALINE 50 MG (ZOLOFT) TABLET PO SCH (08:36)
--- NOTE | 2017-08-18 10:07 | Progress Note-Cardiology ---
Cardiology SOAP Progress Note Subjective: Continues to c/o dyspnea. No c/o palpitations or chest pain. Objective: I&O/Vital Signs 08/17/17 08/18/17 08/18/17 08/18/17 22:20 00:17 01:00 02:52 Temp 98.0 Pulse 66 64 Resp 19 B/P (MAP) 132/63 (86) Pulse Ox 95 94 93 O2 Delivery Vapotherm Vapotherm Vapotherm O2 Flow Rate 22.00 80.00 22.00 20.00 FiO2 80 80 08/18/17 08/18/17 08/18/17 08/18/17 04:03 06:24 06:24 07:00 Temp 98.4 Pulse 59 60 55 Resp 18 B/P (MAP) 132/76 (94) Pulse Ox 94 93 93 O2 Delivery Vapotherm Vapotherm O2 Flow Rate 80.00 22.00 20.00 FiO2 80 08/18/17 08/18/17 07:18 08:00 Temp 97.4 Pulse 63 Resp 20 B/P (MAP) 135/84 (101) Pulse Ox 91 O2 Delivery Vapotherm O2 Flow Rate 75.00 15.00 FiO2 75 08/18/17 00:00 Intake Total 1450 ml Output Total 1700 ml Balance -250 ml Weight (Pounds): 346 Weight (Ounces): 3.0 Weight (Calculated Kilograms): [phone] Constitutional: AAO x 3, well-developed Respiratory: No accessory muscle use, No respiratory distress; chest expansion is symmetric, chest is bilaterally symmetric, other (fair air entry) Cardiovascular: regular rate-rhythm; No JVD; S1 and S2, systolic murmur Gastrointestional: No tender; soft, audible bowel sounds Extremities: significant edema (bilat pitting and non-pitting edema LE) Neurologic/Psychiatric: oriented x 3, grossly intact Skin: No ulcerations; other (dressings to LE which are D&I and not removed) Results/Procedures: Labs Microbiology 08/11/17 Blood Culture - Final, Complete No growth Laboratory Tests 08/17/17 05:39 A/P: Assessment: Dyspnea - multifactorial r/t acute on chronic diastolic CHF, ac exacerbation of COPD, obesity-hypoventilation syndrome, pulmonary hypertension Acute on chronic diastolic CHF Ac exacerbation of COPD - pulmonary services managing Obesity-hypoventilation syndrome with severe pulmonary hypertension - Dr. Jones managing FELIPA of July 31, [address] Boyd at [facility] showed LVEF 60%. LA mildly enlarged. Mild MR and TR insufficiency. No evidence of thrombus. Intolerance to oral anticoag: warfarin (nose bleeds and hemoptysis), apixaban ( GI bleed), rivaroxaban (hemoptysis). Off oral anticoag at instructions of her regular press operator automatic, Dr Boyd Paroxysmal atrial fibrillation - recent FELIPA with cardioversion on July 31, [address] Boyd at [facility] - maintaining SR (Was discharged on Amiodarone, but she is not currently taking) MPI of July 2015 done at [facility] is noted to be "normal" in the records we reviewed Cardiac cath in 2004 done in [place], [place] which is noted to be "normal" in the records we reviewed from [facility] Cellulitis bilat LE - management by wound care and medical services Hypoxemia, has been using oxygen at home, refusing BiPAP Obstructive sleep apnea, intolerant to C Pap Obesity, BMI 64. History of peripheral arterial disease, underwent intervention by Dr. Rodriguez on her leg after an injury done about 10 years ago. H/O tobaccoism - quit 2012 HLD - managed by Dr. Boyd (her primary press operator automatic) HTN Plan: Continue current medication regimen Monitor lab Continue low dose Lovenox - monitor for bleeding IV Bumex as per pulmonology services ESDRAS CA Aug 18, 2017 10:07
--- NOTE | 2017-08-18 11:17 | Physical Therapy Daily Note ---
PT Daily Note-Current Subjective Patient reluctantly agrees to PT. She continues on vapotherm Pain Numeric Pain Scale: 5-Moderate Pain Location: Left Location Body Site: Shoulder Pain Description: Acute Mental Status Patient Orientation: Normal For Age Attachments: Oxygen (vapotherm) Transfers Functional [place] Measure 0=Not Assessed/NA 4=Minimal Assistance 1=Total Assistance 5=Supervision or Setup 2=Maximal Assistance 6=Modified [place] 3=Moderate Assistance 7=Complete IndependenceIRFPAI Quality Coding Scale 6 Independent with activity with or without an assistive device 5 Patient requires set up or clean up by helper. Patient completes activity by themselves 4 Supervision or touching assist (CGA). [place] provide cues , steadying assist 3 The helper provides less than half the effort to complete the activity 2 The helper provides more than half the effort to complete the activity 1 Dependent. The helper does all the effort to complete an activity 7 Patient refused to complete or attempt activity 9 The patient did not perform the activity before the current illness or injury 88 Not attempted due to Medical conditions or safety concerns Transfers (B, C, W/C) (FIM): 6 Scootin Rollin Supine to/from Sit: 6 Sit to/from Stand: 6 Bed to/from Chair: 6 Weight Bearing Right Lower Extremity: Right Full Weight Bearing Left Lower Extremity: Left Full Weight Bearing Exercises Seated Therapy Exercises: Ankle pumps, Long arc quads Seated Reps: 25 Standing: Marching Standing Reps: 25 Assessment Patient tolerated treatment and is up in recliner with needs met. PT Manufacturing Maintenance Manager Goals Care Home Goals PT Care Home Goals Time Frame: Aug 22, 2017 Transfers (B,C,W/C) (FIM): 6 Gait (FIM): 7 Gait distance (FIM): 3=150 ft Gait Level of Assist: 7 Gait Assistive Device: None PT Plan Treatment/Plan Treatment Plan: Continue Plan of Care Treatment Plan: Bed Mobility, Education, Functional Strength, Gait, Safety, Therapeutic Exercise, Transfers Treatment Duration: Aug 22, 2017 Frequency: 6 times per week Estimated Hrs Per Day: .25 hour per day Patient and/or Family Agrees t: Yes Time/GCodes Time In: 1101 Time Out: 1111 Total Billed Treatment Time: 10 Total Billed Treatment 1 visit EX 10 min NAGI SEN PT Aug 18, 2017 11:16
--- NOTE | 2017-08-18 18:17 | Wound Care Assessment ---
Wound Care Assessment Date Seen by Provider: Aug 18, 2017 Time Seen by Provider: 18:12 Chief Complaint R posterior calf lesion. HPI The patient is a 62 year old female with a painful ulcerated area of R posterior calf and numerous new small violaceous macules on both calves. On high dose steroids for 72 hours; she notes less pain, less swelling and now itching. The wounds are markedly improved, decreased in size, and demonstrate partial resolution of the surrounding purplish macules. Extensive cyanosis around R posterior calf wound is resolved. The biopsy report shows gives a non-diagnostic result. Past Medical History: Admits Heart Disease (Atrial fibrillation, congestive heart failure.), Admits Peripheral Artery Disease (Repair of L leg arteries.) Smoking Status: Former Smoker Recreational Drug Use: No Alcohol Use: Denies Use Review of Systems Pulmonary: No Dyspnea Cardiovascular: Edema; No: Chest Pain Exam Vital Signs Date Time Temp Pulse Resp B/P (MAP) Pulse Ox O2 Delivery O2 Flow Rate FiO2 08/18/17 16:32 97.4 71 19 132/74 (93) 20 Vapotherm 80.00 10.00 08/18/17 15:38 80 Capillary Refill : Less Than 3 SecondsLess Than 3 Seconds General Appearance: no apparent distress Respiratory: no accessory muscle use Skin: other (Marked decrease in purple macules and cyanosis.) Results Microbiology 08/11/17 Blood Culture - Final, Complete No growth Assessment/Plan/Dx 1. R posterior calf ulcer and multiple bilateral macules, clinical response consistent with vasculitis. 2. Lymphedema. Plan: Elevate, non-adherent dressings, and continue oral high dose steroids. LELAND DOBBS MD Aug 18, 2017 18:16
--- NOTE | 2017-08-18 20:31 | Progress Note (SOAP) ---
Subjective Date Seen by Provider: Aug 18, 2017 Time Seen by Provider: 12:30 Subjective/Events-last exam Fwup Pulmonary Edema/Acute on Chronic Diastolic CHF, RLE cellulitis with ulcer, COPD, Paroxysmal atrial fibrillation. Up in chair. Vapotherm has been turned down. Right leg not as sore. Objective Exam Vital Signs Date Time Temp Pulse Resp B/P (MAP) Pulse Ox O2 Delivery O2 Flow Rate FiO2 08/18/17 19:00 81 08/18/17 18:51 86 Vapotherm 10.00 80 08/18/17 16:32 97.4 71 19 132/74 (93) 20 Vapotherm 80.00 10.00 08/18/17 15:38 92 Vapotherm 15.00 80 08/18/17 13:00 63 08/18/17 11:57 97.3 61 20 142/89 (106) 91 Vapotherm 80.00 15.00 08/18/17 10:09 85 15.00 75 08/18/17 08:00 97.4 63 20 135/84 (101) 91 Vapotherm 75.00 15.00 08/18/17 08:00 92 Vapotherm 15.00 08/18/17 07:18 75 08/18/17 07:00 55 08/18/17 06:24 93 Vapotherm 22.00 80 08/18/17 06:24 60 93 08/18/17 04:03 98.4 59 18 132/76 (94) 94 Vapotherm 80.00 20.00 08/18/17 02:52 93 Vapotherm 22.00 80 08/18/17 01:00 64 08/18/17 00:17 98.0 66 19 132/63 (86) 94 Vapotherm 80.00 20.00 08/17/17 22:20 95 Vapotherm 22.00 80 I & O 08/18/17 07:00 Intake Total 2060 ml Output Total 2200 ml Balance -140 ml Capillary Refill : Less Than 3 SecondsLess Than 3 Seconds General Appearance: No Apparent Distress Neck: Supple Respiratory: Lungs Clear Cardiovascular: Regular Rate, Rhythm Extremity: Non Tender, No Calf Tenderness, Inflammation (right lower leg with dressing in place) Neurologic/Psychiatric: Alert, Oriented x3 Results Lab Microbiology 08/11/17 Blood Culture - Final, Complete No growth Assessment/Plan Assessment/Plan Assess & Plan/Chief Complaint 1. Acute Pulmonary Edema/Acute on Chronic Diastolic CHF--continue with lasix for diuresis 2. Acute Respiratory Distress with Hypoxia--down to Vapotherm and turning down 3. Acute RLE Ulcer--continue Rocephin and Zovirax and IV steroids to cover for vasculitis, biopsy results pending 4. Paroxysmal Atrial Fibrillation--S/P cardioversion 5. COPD--stable Clinical Quality Measures Admission Status Admission Dx 1. Acute Respiratory Failure with Hypoxia--admit on BIPAP 2. Pulmonary Edema--Acute on Chronic Diastolic Congestive Heart Failure--admit on IV lasix 3. COPD--start SVNS 4. Right Lower Extremity Shingles with secondary infection--start IV acyclovir and monitor redness, will DC antibiotics tomorrow if WBC count stable/afebrile and no worsening erythema 5. Paroxysmal Atrial Fibrillation--S/P cardioversion--cover with lovenox and resume home meds and consult cardiology DVT/VTE Risk/Contraindication: Risk Factor Score Per Nursin RFS Level Per Nursing on Admit: 4+=Very High DEANN BUCKNER DO Aug 18, 2017 8:31 pm
[2017-08-19] MEDS: RT-ALBUTEROL/IPRATROPIUM 3 ML (DUONEB) VIAL INH SCH ×6 (01:34→21:15)
[2017-08-19 05:00] VITALS: BP 132/62
[2017-08-19] MEDS: KCL 20 MEQ TAB (K-DUR) PO SCH (05:42)
[2017-08-19] MEDS: ACYCLOVIR INJECTION 500 MG in NS (IVPB) 250 ML IV SCH ×3 (05:43→22:05)
[2017-08-19 07:27] VITALS: BP 151/66
--- NOTE | 2017-08-19 07:43 | Pulmonary Progress Note ---
Subjective Time Seen by Provider: 09:00 Subjective/Events-last exam pt is SOB with exertion Exam Exam Vital Signs Date Time Temp Pulse Resp B/P (MAP) Pulse Ox O2 Delivery O2 Flow Rate FiO2 08/19/17 07:27 97.0 64 22 151/66 (94) 90 Vapotherm 85.00 14.00 08/19/17 06:55 90 Vapotherm 14.00 85 08/19/17 05:00 98.1 66 16 132/62 (85) 93 Vapotherm 85.00 14.00 08/19/17 01:34 90 Vapotherm 14.00 85 08/19/17 01:00 67 08/18/17 23:58 97.0 86 20 154/67 (96) 90 Vapotherm 85.00 14.00 08/18/17 22:18 90 Vapotherm 14.00 85 08/18/17 20:45 97.5 71 20 146/74 (98) 93 Vapotherm 80.00 10.00 08/18/17 20:00 Vapotherm 15.00 85 08/18/17 19:00 81 08/18/17 18:51 86 Vapotherm 10.00 80 08/18/17 16:32 97.4 71 19 132/74 (93) 92 Vapotherm 80.00 10.00 08/18/17 15:38 92 Vapotherm 15.00 80 08/18/17 13:00 63 08/18/17 11:57 97.3 61 20 142/89 (106) 91 Vapotherm 80.00 15.00 08/18/17 10:09 85 15.00 75 08/18/17 08:00 97.4 63 20 135/84 (101) 91 Vapotherm 75.00 15.00 08/18/17 08:00 92 Vapotherm 15.00 I & O 08/19/17 07:00 Intake Total 2359 ml Output Total 4225 ml Balance -1866 ml General Appearance: No Apparent Distress HEENT: PERRL/EOMI, TMs Normal, Normal ENT Inspection, Pharynx Normal Neck: Supple Respiratory: Lungs Clear Cardiovascular: Regular Rate, Rhythm Capillary Refill: Less Than 3 Seconds Gastrointestinal: normal bowel sounds, non tender, soft Extremity: Non Tender, No Calf Tenderness, Inflammation (right lower leg with dressing in place) Neurologic/Psychiatric: Alert, Oriented x3 Skin: Ecchymosis (with bruising to right lower lateral leg just below ulcerative lesion of calf), Erythema (papules scattered to right lower leg) Lymphatic: No Adenopathy Assessment/Plan Assessment/Plan Acute on chronic respiratory failure -noninvasive ventilation - pt is still requiring 90% oxygen via Vapotherm -She refuses BiPAP at night. I doubt she would use home vent to mask. Will continue to evaluate her for it as she improves. -SVNs, oxygen therapy -Repeat labs and CXR Acute pulmonary edema with pleural effusions -Will give bumex 2mg daily Morbid obesity with OHS -Pt will benefit from home vent to mask. --She refuses BiPAP at night. I doubt she would use home vent to mask. Will continue to evaluate her for it as she improves. debility Atelectasis -Increase activity Pt is poorly compliant, morbidly obese, and still continues to require 90% high flow oxygen. She refuses BiPAP therapy. I discussed with patient today regarding hospice vs DNR vs full code status. Pt is really wanting to go home however she is requiring a lot oxygen still. After discussion and education she would like to be a DNR however ok for short term ventilation at this time. She wants more education on hospice. I am going to have Samantha Guerrero talk with patient regarding options. She is going to need a lot of oxygen high flow in the home setting. We were able to provide this on previous patients through [facility]. 233 TARUN SANDOVAL DO Aug 19, 2017 07:43
[2017-08-19] MEDS: BUMETANIDE 1 MG/4 ML (BUMEX) VIAL IV SCH (08:35)
[2017-08-19] MEDS: CARVEDILOL 6.25 MG (COREG) TAB PO SCH ×2 (08:37→22:05)
[2017-08-19] MEDS: MONTELUKAST 10 MG (SINGULAIR) TAB PO SCH (08:37)
[2017-08-19] MEDS: MAGNESIUM OXIDE (MAG-OX)400 MG TAB PO SCH ×2 (08:37→17:45)
[2017-08-19] MEDS: ENOXAPARIN 60 MG/0.6 ML (LOVENOX) SYR SC SCH ×2 (08:37→22:05)
[2017-08-19] MEDS: FAMOTIDINE 20 MG (PEPCID) TABLET PO SCH ×2 (08:37→22:05)
[2017-08-19] MEDS: SERTRALINE 50 MG (ZOLOFT) TABLET PO SCH (08:37)
[2017-08-19] MEDS: PANTOPRAZOLE 40 MG (PROTONIX) TAB PO SCH (08:38)
[2017-08-19 08:43] LABS: BASOPHILS % (AUTO) 0 % (0-10); EOSINOPHILS % (AUTO) 0 % (0-10); HEMATOCRIT 43 % (35-52); HEMOGLOBIN 13.7 G/DL (11.5-16.0); LYMPHOCYTES # (AUTO) 0.7 X 10^3 (1.0-4.0); LYMPHOCYTES % (AUTO) 10 % (12-44); MEAN CORPUSCULAR HEMOGLOBIN 33 PG (25-34); MEAN CORPUSCULAR HGB CONC 32 G/DL (32-36); MEAN CORPUSCULAR VOLUME 102 FL (80-99); MEAN PLATELET VOLUME 11.1 FL (7.4-10.4); MONOCYTES # (AUTO) 0.5 X 10^3 (0.0-1.0); MONOCYTES % (AUTO) 7 % (0-12); NEUTROPHILS # (AUTO) 5.7 X 10^3 (1.8-7.8); NEUTROPHILS % (AUTO) 83 % (42-75); PLATELET COUNT 185 10^3/uL (130-400); RED BLOOD COUNT 4.22 10^6/uL (4.35-5.85); RED CELL DISTRIBUTION WIDTH 15.1 % (10.0-14.5); WHITE BLOOD COUNT 6.8 10^3/uL (4.3-11.0)
[2017-08-19 09:00] LABS: ALANINE AMINOTRANSFERASE 57 U/L (0-55); ALBUMIN 3.1 GM/DL (3.2-4.5); ALKALINE PHOSPHATASE 61 U/L (40-136); BILIRUBIN,TOTAL 0.8 MG/DL (0.1-1.0); BUN/CREATININE RATIO 31; CARBON DIOXIDE 32 MMOL/L (21-32); CHLORIDE 97 MMOL/L (98-107); CREATININE SERUM 0.67 MG/DL (0.60-1.30); GFR ESTIMATED > 60; GLUCOSE 169 MG/DL (70-105); MAGNESIUM 2.3 MG/DL (1.8-2.4); PHOSPHORUS 3.5 MG/DL (2.3-4.7); POTASSIUM 4.7 MMOL/L (3.6-5.0); SODIUM 139 MMOL/L (135-145); TOTAL PROTEIN 6.3 GM/DL (6.4-8.2)
[2017-08-19] MEDS: predniSONE 20 MG TAB PO SCH (10:01)
--- NOTE | 2017-08-19 10:22 | Physical Therapy Daily Note ---
PT Daily Note-Current Subjective Patient reports frustration with "everybody wanting me to wear that thing ( point to BIPAP) and I'm not going to. I'm not going to a skilled nursing either like the doctor wants me to." She did agree to PT. Pain Numeric Pain Scale: 0-No Pain Location: No Pain Reported Mental Status Patient Orientation: Normal For Age Attachments: Oxygen (vapotherm), [place] Catheter Transfers Functional [place] Measure 0=Not Assessed/NA 4=Minimal Assistance 1=Total Assistance 5=Supervision or Setup 2=Maximal Assistance 6=Modified [place] 3=Moderate Assistance 7=Complete IndependenceIRFPAI Quality Coding Scale 6 Independent with activity with or without an assistive device 5 Patient requires set up or clean up by helper. Patient completes activity by themselves 4 Supervision or touching assist (CGA). [place] provide cues , steadying assist 3 The helper provides less than half the effort to complete the activity 2 The helper provides more than half the effort to complete the activity 1 Dependent. The helper does all the effort to complete an activity 7 Patient refused to complete or attempt activity 9 The patient did not perform the activity before the current illness or injury 88 Not attempted due to Medical conditions or safety concerns Transfers (B, C, W/C) (FIM): 7 Scootin Supine to/from Sit: 7 Sit to/from Stand: 7 Bed to/from Chair: 7 Weight Bearing Right Lower Extremity: Right Full Weight Bearing Left Lower Extremity: Left Full Weight Bearing Gait Training Gait (FIM): 1 Distance (FIM): 1=up to 49 ft Distance: 10' Gait Level of Assist: 7 Gait Assistive Device: None functional Exercises Seated Therapy Exercises: Ankle pumps, Long arc quads Seated Reps: 25 (2 sets) Standing: Marching Standing Reps: 25 (3 sets) Assessment Patient is currently at independent LOF with mobility. Vapotherm limits distance mobility. Patient does desat (85%) with activity, however, does not display distress. PT to increase activity as patient pulmonary function improves. PT Recreation Program Coordinator Goals Care Home Goals PT Recreation Program Coordinator Goals Time Frame: Aug 22, 2017 Transfers (B,C,W/C) (FIM): 6 Gait (FIM): 7 Gait distance (FIM): 3=150 ft Gait Level of Assist: 7 Gait Assistive Device: None PT Plan Treatment/Plan Treatment Plan: Continue Plan of Care Treatment Plan: Bed Mobility, Education, Functional Strength, Gait, Safety, Therapeutic Exercise, Transfers Treatment Duration: Aug 22, 2017 Frequency: 6 times per week Estimated Hrs Per Day: .25 hour per day Patient and/or Family Agrees t: Yes Time/GCodes Time In: 855 Time Out: 920 Total Billed Treatment Time: 25 Total Billed Treatment 1 visit EX x 2 25 min NAGI SEN PT Aug 19, 2017 10:21
--- NOTE | 2017-08-19 10:30 | Diagnostic Imaging Report ---
INDICATION: Shortness of breath. TECHNIQUE: A frontal chest was obtained at 0938 hours. COMPARISON: 08/12/2017. FINDINGS: Prominent cardiomegaly is noted. There is central vascular congestion. There are chronic appearing increased interstitial markings. There is some mild right basilar atelectatic change versus infiltrate. The left lung shows no focal abnormality. There is no pneumothorax or pleural fluid. IMPRESSION: Prominent cardiomegaly with some central vascular congestion and mild right basilar atelectatic change versus infiltrate. No pneumothorax or pleural fluid. Dictated by: Dictated on workstation # [id number]
[2017-08-19 12:00] VITALS: BP 138/78
--- NOTE | 2017-08-19 12:18 | Progress Note-Cardiology ---
Cardiology SOAP Progress Note Subjective: Sitting up in a chair at the bedside. Reports SOB is unchanged from yesterday. No c/o palpitations, CP, syncope or near syncope. States she wants to go home today. Objective: I&O/Vital Signs 08/19/17 08/19/17 08/19/17 08/19/17 06:55 07:00 07:27 08:00 Temp 97.0 Pulse 80 64 Resp 22 B/P (MAP) 151/66 (94) Pulse Ox 90 90 92 O2 Delivery Vapotherm Vapotherm Vapotherm O2 Flow Rate 14.00 85.00 15.00 14.00 FiO2 85 08/19/17 08/19/17 08/19/17 08/19/17 10:30 12:00 13:00 14:45 Temp 97.2 Pulse 62 62 Resp 18 B/P (MAP) 138/78 (98) Pulse Ox 90 91 92 O2 Delivery High Flow N/C High Flow N/C High Flow N/C O2 Flow Rate 6.00 6.00 6.00 08/19/17 16:31 Temp 97.6 Pulse 58 Resp 20 B/P (MAP) 120/86 (97) Pulse Ox 91 O2 Delivery High Flow N/C O2 Flow Rate 6.00 08/19/17 00:00 Intake Total 1674 ml Output Total 2850 ml Balance -1176 ml Weight (Pounds): 344 Weight (Ounces): 15.3 Weight (Calculated Kilograms): 156.832679 Constitutional: AAO x 3, well-developed Respiratory: No accessory muscle use, No respiratory distress; chest expansion is symmetric, chest is bilaterally symmetric, other (fair air entry) Cardiovascular: regular rate-rhythm; No JVD; S1 and S2, systolic murmur Gastrointestional: No tender; soft, audible bowel sounds Extremities: significant edema (bilat pitting and non-pitting edema LE) Neurologic/Psychiatric: oriented x 3, grossly intact Skin: No ulcerations; other (dressings to LE which are D&I and not removed) Results/Procedures: Labs Laboratory Tests 08/19/17 08:30: White Blood Count 6.8, Red Blood Count 4.22L, Hemoglobin 13.7, Hematocrit 43, Mean Corpuscular Volume 102H, Mean Corpuscular Hemoglobin 33, Mean Corpuscular Hemoglobin Concent 32, Red Cell Distribution Width 15.1H, Platelet Count 185, Mean Platelet Volume 11.1H, Neutrophils (%) (Auto) 83H, Lymphocytes (%) (Auto) 10L, Monocytes (%) (Auto) 7, Eosinophils (%) (Auto) 0, Basophils (%) (Auto) 0, Neutrophils # (Auto) 5.7, Lymphocytes # (Auto) 0.7L, Monocytes # (Auto) 0.5, Eosinophils # (Auto) 0.0, Basophils # (Auto) 0.0, Sodium Level 139, Potassium Level 4.7, Chloride Level 97L, Carbon Dioxide Level 32, Anion Gap 10, Blood Urea Nitrogen 21H, Creatinine 0.67, Estimat Glomerular Filtration Rate > 60, BUN /Creatinine Ratio 31, Glucose Level 169H, Calcium Level 9.0, Phosphorus Level 3.5, Magnesium Level 2.3, Total Bilirubin 0.8, Aspartate Amino Transf (AST/SGOT ) 30, Alanine Aminotransferase (ALT/SGPT) 57H, Alkaline Phosphatase 61, B-Type Natriuretic Peptide 252.7H, Total Protein 6.3L, Albumin 3.1L Microbiology 08/11/17 Blood Culture - Final, Complete No growth Laboratory Tests 08/19/17 08:30 A/P: Assessment: Dyspnea - multifactorial r/t acute on chronic diastolic CHF, ac exacerbation of COPD, obesity-hypoventilation syndrome, pulmonary hypertension Acute on chronic diastolic CHF Ac exacerbation of COPD - pulmonary services managing Obesity-hypoventilation syndrome with severe pulmonary hypertension - Dr. Jones managing FELIPA of July 31, [address] Boyd at [facility] [place] showed LVEF 60%. LA mildly enlarged. Mild MR and TR insufficiency. No evidence of thrombus. Intolerance to oral anticoag: warfarin (nose bleeds and hemoptysis), apixaban ( GI bleed), rivaroxaban (hemoptysis). Off oral anticoag at instructions of her regular physicians assistant, Dr Boyd Paroxysmal atrial fibrillation - recent FELIPA with cardioversion on July 31, [address] Boyd at [facility] [place] - maintaining SR (Was discharged on Amiodarone, but she is not currently taking) MPI of July 2015 done at [facility] [place] is noted to be "normal" in the records we reviewed Cardiac cath in 2004 done in [place], [place] which is noted to be "normal" in the records we reviewed from [facility] [place] Cellulitis bilat LE - management by wound care and medical services Hypoxemia, has been using oxygen at home, refusing BiPAP Obstructive sleep apnea, intolerant to C Pap Obesity, BMI 64. History of peripheral arterial disease, underwent intervention by Dr. Rodriguez on her leg after an injury done about 10 years ago. H/O tobaccoism - quit 2012 HLD - managed by Dr. Boyd (her primary physicians assistant) HTN Plan: Continue current medication regimen Monitor lab Continue low dose Lovenox - monitor for bleeding She wishes to go home today with Hospice services as per rec of pulmonology She wishes to f/u with Dr. Boyd her regular physicians assistant at [facility] [place] She wishes to f/u with Dr. Barrios of pulmonary services at [facility] [place] Physician Assessment Physician Assessment No new symptoms. Feels better compared to time of admission. Less short of breath. No cp or palp or syncope Lungs: Fair air entry, dec at bases Cor: reg Ext: mod bilat nonpitting edema A&R * As documented in our note above that I updated (italics) and as noted below * Continue current regimen * She states she will keep outpatient card f/u with Dr Boyd, her physicians assistant ESDRAS CA Aug 19, 2017 12:18 EDILIA GOMEZ MD FACP FAC CCDS Aug 19, 2017 18:31
[2017-08-19] MEDS ORDERED: MAGN400T6 PO (12:48)
[2017-08-19] MEDS ORDERED: IPRA3AMP INH ×2 (12:48)
[2017-08-19] MEDS ORDERED: PRD20T PO (12:48)
[2017-08-19] MEDS ORDERED: ACYC800T PO (12:48)
[2017-08-19] MEDS ORDERED: POTA20TA8 PO (12:48)
[2017-08-19] MEDS ORDERED: BUME2TAB3 PO (12:48)
[2017-08-19] MEDS ORDERED: HYDR-3820 PO (12:49)
--- NOTE | 2017-08-19 12:53 | Discharge Instructions ---
Discharge Instructions Discharge Medications New, Converted or Re-Newed RX: RX on Chart Patient Instructions Goal/Follow Up Appt: 2 weeks Activity & Diet Discharge Diet: Cardiac Diet Activity as Tolerated: Yes Orders-Post D/C & Referrals Discharge with hospice on hi flow oxygen Xeroform with gauze to right leg wound--dressing change daily DEANN BUCKNER DO Aug 19, 2017 12:53 pm
[2017-08-19] MEDS: HYDROcodone/APAP 7.5 MG/325 MG (LORTAB, LORCET PLUS) TABLET PO PRN ×2 (15:12→22:05)
[2017-08-19 16:31] VITALS: BP 120/86
--- NOTE | 2017-08-19 19:25 | Progress Note (SOAP) ---
Subjective Date Seen by Provider: Aug 19, 2017 Time Seen by Provider: 12:30 Subjective/Events-last exam Fwup Pulmonary Edema/Acute on Chronic Diastolic CHF, RLE cellulitis with ulcer, COPD, Paroxysmal atrial fibrillation. Up in chair on high flow nasal cannula. Right leg ulcer/wound healing. Patient has decided to go home on hospice. Objective Exam Vital Signs Date Time Temp Pulse Resp B/P (MAP) Pulse Ox O2 Delivery O2 Flow Rate FiO2 08/19/17 19:00 89 High Flow N/C 6.50 08/19/17 16:31 97.6 58 20 120/86 (97) 91 High Flow N/C 6.00 08/19/17 14:45 92 High Flow N/C 6.00 08/19/17 13:00 62 08/19/17 12:00 97.2 62 18 138/78 (98) 91 High Flow N/C 6.00 08/19/17 10:30 90 High Flow N/C 6.00 08/19/17 08:00 92 Vapotherm 15.00 08/19/17 07:27 97.0 64 22 151/66 (94) 90 Vapotherm 85.00 14.00 08/19/17 07:00 80 08/19/17 06:55 90 Vapotherm 14.00 85 08/19/17 05:00 98.1 66 16 132/62 (85) 93 Vapotherm 85.00 14.00 08/19/17 01:34 90 Vapotherm 14.00 85 08/19/17 01:00 67 08/18/17 23:58 97.0 86 20 154/67 (96) 90 Vapotherm 85.00 14.00 08/18/17 22:18 90 Vapotherm 14.00 85 08/18/17 20:45 97.5 71 20 146/74 (98) 93 Vapotherm 80.00 10.00 08/18/17 20:00 Vapotherm 15.00 85 I & O 08/19/17 07:00 Intake Total 2359 ml Output Total 4225 ml Balance -1866 ml Capillary Refill : Less Than 3 SecondsLess Than 3 Seconds General Appearance: No Apparent Distress Neck: Supple Respiratory: Lungs Clear Cardiovascular: Regular Rate, Rhythm Extremity: Pedal Edema Neurologic/Psychiatric: Alert, Oriented x3 Skin: Other (right LE with dry dressing in place) Results Lab Laboratory Tests 08/19/17 08:30: White Blood Count 6.8, Red Blood Count 4.22L, Hemoglobin 13.7, Hematocrit 43, Mean Corpuscular Volume 102H, Mean Corpuscular Hemoglobin 33, Mean Corpuscular Hemoglobin Concent 32, Red Cell Distribution Width 15.1H, Platelet Count 185, Mean Platelet Volume 11.1H, Neutrophils (%) (Auto) 83H, Lymphocytes (%) (Auto) 10L, Monocytes (%) (Auto) 7, Eosinophils (%) (Auto) 0, Basophils (%) (Auto) 0, Neutrophils # (Auto) 5.7, Lymphocytes # (Auto) 0.7L, Monocytes # (Auto) 0.5, Eosinophils # (Auto) 0.0, Basophils # (Auto) 0.0, Sodium Level 139, Potassium Level 4.7, Chloride Level 97L, Carbon Dioxide Level 32, Anion Gap 10, Blood Urea Nitrogen 21H, Creatinine 0.67, Estimat Glomerular Filtration Rate > 60, BUN /Creatinine Ratio 31, Glucose Level 169H, Calcium Level 9.0, Phosphorus Level 3.5, Magnesium Level 2.3, Total Bilirubin 0.8, Aspartate Amino Transf (AST/SGOT ) 30, Alanine Aminotransferase (ALT/SGPT) 57H, Alkaline Phosphatase 61, B-Type Natriuretic Peptide 252.7H, Total Protein 6.3L, Albumin 3.1L Microbiology 08/11/17 Blood Culture - Final, Complete No growth Assessment/Plan Assessment/Plan Assess & Plan/Chief Complaint 1. Acute Pulmonary Edema/Acute on Chronic Diastolic CHF--continue with bumes for diuresis 2. Acute Respiratory Distress with Hypoxia--down to high flow nasal cannula 3. Acute RLE Ulcer--continue Zovirax and prednisone, biopsy results inconclusive 4. Paroxysmal Atrial Fibrillation--S/P cardioversion 5. COPD--stable 6. Plan is home with hospice tomorrow Clinical Quality Measures Admission Status Admission Dx 1. Acute Respiratory Failure with Hypoxia--admit on BIPAP 2. Pulmonary Edema--Acute on Chronic Diastolic Congestive Heart Failure--admit on IV lasix 3. COPD--start SVNS 4. Right Lower Extremity Shingles with secondary infection--start IV acyclovir and monitor redness, will DC antibiotics tomorrow if WBC count stable/afebrile and no worsening erythema 5. Paroxysmal Atrial Fibrillation--S/P cardioversion--cover with lovenox and resume home meds and consult cardiology DVT/VTE Risk/Contraindication: Risk Factor Score Per Nursin RFS Level Per Nursing on Admit: 4+=Very High DEANN BUCKNER DO Aug 19, 2017 7:25 pm
[2017-08-19 20:00] VITALS: BP 129/60
[2017-08-20 00:20] VITALS: BP 128/72
[2017-08-20] MEDS: RT-ALBUTEROL/IPRATROPIUM 3 ML (DUONEB) VIAL INH SCH ×3 (01:48→10:55)
[2017-08-20 04:00] VITALS: BP 118/82
[2017-08-20] MEDS: ACYCLOVIR INJECTION 500 MG in NS (IVPB) 250 ML IV SCH ×2 (05:49→14:10)
[2017-08-20 05:50] LABS: BASOPHILS % (AUTO) 0 % (0-10); EOSINOPHILS % (AUTO) 0 % (0-10); HEMATOCRIT 43 % (35-52); LYMPHOCYTES # (AUTO) 1.4 X 10^3 (1.0-4.0); LYMPHOCYTES % (AUTO) 21 % (12-44); MEAN CORPUSCULAR HEMOGLOBIN 31 PG (25-34); MEAN CORPUSCULAR HGB CONC 30 G/DL (32-36); MEAN CORPUSCULAR VOLUME 103 FL (80-99); MEAN PLATELET VOLUME 10.8 FL (7.4-10.4); MONOCYTES # (AUTO) 0.8 X 10^3 (0.0-1.0); MONOCYTES % (AUTO) 12 % (0-12); NEUTROPHILS # (AUTO) 4.6 X 10^3 (1.8-7.8); NEUTROPHILS % (AUTO) 67 % (42-75); PLATELET COUNT 203 10^3/uL (130-400); RED BLOOD COUNT 4.16 10^6/uL (4.35-5.85); RED CELL DISTRIBUTION WIDTH 15.3 % (10.0-14.5); WHITE BLOOD COUNT 6.9 10^3/uL (4.3-11.0)
[2017-08-20] MEDS: predniSONE 20 MG TAB PO SCH (06:05)
[2017-08-20] MEDS: KCL 20 MEQ TAB (K-DUR) PO SCH (06:06)
[2017-08-20 06:12] LABS: BUN/CREATININE RATIO 39; CALCIUM 8.7 MG/DL (8.5-10.1); CARBON DIOXIDE 38 MMOL/L (21-32); CHLORIDE 94 MMOL/L (98-107); CREATININE SERUM 0.69 MG/DL (0.60-1.30); GFR ESTIMATED > 60; GLUCOSE 95 MG/DL (70-105); MAGNESIUM 2.4 MG/DL (1.8-2.4); PHOSPHORUS 4.7 MG/DL (2.3-4.7); POTASSIUM 4.6 MMOL/L (3.6-5.0); SODIUM 140 MMOL/L (135-145)
[2017-08-20 08:00] VITALS: BP 125/71
[2017-08-20] MEDS: BUMETANIDE 1 MG/4 ML (BUMEX) VIAL IV SCH (08:45)
[2017-08-20] MEDS: FAMOTIDINE 20 MG (PEPCID) TABLET PO SCH (08:45)
[2017-08-20] MEDS: MAGNESIUM OXIDE (MAG-OX)400 MG TAB PO SCH (08:45)
[2017-08-20] MEDS: MONTELUKAST 10 MG (SINGULAIR) TAB PO SCH (08:45)
[2017-08-20] MEDS: CARVEDILOL 6.25 MG (COREG) TAB PO SCH (08:45)
[2017-08-20] MEDS: SERTRALINE 50 MG (ZOLOFT) TABLET PO SCH (08:45)
[2017-08-20] MEDS: PANTOPRAZOLE 40 MG (PROTONIX) TAB PO SCH (08:45)
[2017-08-20] MEDS: ENOXAPARIN 60 MG/0.6 ML (LOVENOX) SYR SC SCH (08:49)
--- NOTE | 2017-08-20 10:20 | Physical Therapy Daily Note ---
PT Daily Note-Current Subjective Pt sitting up in recliner upon arrival. Pt reports discharging today. Pt awaiting news that needed O2 is secured so pt can return home. Pt declines Ex citing overdid it yesterday but ASSISTANT PROFESSOR and pt discuss home and any equipment or AD needed. Pain Location: No Pain Reported Mental Status Patient Orientation: Person, Place, Time, Situation Attachments: Oxygen Transfers Functional Drew Measure 0=Not Assessed/NA 4=Minimal Assistance 1=Total Assistance 5=Supervision or Setup 2=Maximal Assistance 6=Modified Drew 3=Moderate Assistance 7=Complete IndependenceIRFPAI Quality Coding Scale 6 Independent with activity with or without an assistive device 5 Patient requires set up or clean up by helper. Patient completes activity by themselves 4 Supervision or touching assist (CGA). [place] provide cues , steadying assist 3 The helper provides less than half the effort to complete the activity 2 The helper provides more than half the effort to complete the activity 1 Dependent. The helper does all the effort to complete an activity 7 Patient refused to complete or attempt activity 9 The patient did not perform the activity before the current illness or injury 88 Not attempted due to Medical conditions or safety concerns Weight Bearing Right Lower Extremity: Right Full Weight Bearing Left Lower Extremity: Left Full Weight Bearing Treatments ASSISTANT PROFESSOR & Pt discuss O2 at home and that staff is already working on it, continued PT at home and smaller portable option for O2 so pt could run errands as needed. Pt is resting in recliner at end of pt educ. with all needs met. Assessment Current Status: Good Progress Pt is Indep. with transfers and ambulation. Pt fatigues but is making improvements with activity tolerance as pt gets stronger & healthier. PT Campaign Analyst Goals Campaign Analyst Goals PT Campaign Analyst Goals Time Frame: Aug 22, 2017 Transfers (B,C,W/C) (FIM): 6 Gait (FIM): 7 Gait distance (FIM): 3=150 ft Gait Level of Assist: 7 Gait Assistive Device: None PT Plan Problem List Problem List: Activity Tolerance, Gait Treatment/Plan Treatment Plan: Continue Plan of Care Treatment Plan: Bed Mobility, Education, Functional Strength, Gait, Safety, Therapeutic Exercise, Transfers Treatment Duration: Aug 22, 2017 Frequency: 6 times per week Estimated Hrs Per Day: .25 hour per day Patient and/or Family Agrees t: Yes Safety Risks/Education Patient Education: Gait Training, Correct Positioning, Disease Process, Safety Issues Teaching Recipient: Patient Teaching Methods: Discussion Response to Teaching: Verbalize Understanding Time/GCodes Time In: 942 Time Out: 1005 Total Billed Treatment Time: 23 Total Billed Treatment 1, FA x2 (23m) G Codes Necessary: DELVIS Kaplan ASSISTANT PROFESSOR Aug 20, 2017 10:20
--- NOTE | 2017-08-20 10:28 | Cardiology Progress Note ---
Subjective Date Seen by Provider: Aug 20, 2017 Time Seen by Provider: 10:26 Subjective/Events-last exam patient is sitting in a chair, using nasal cannula oxygen, feeling better. Being discharged today Review of Systems General: No Chills, No Night Sweats, No Fatigue, No Malaise, No Appetite, No Other HEENT: No Head Aches, No Visual Changes, No Eye Pain, No Ear Pain, No Dysphasia , No Sinus Congestion, No Post Nasal Drip, No Sore Throat, No Other Pulmonary: Dyspnea; No Cough, No Pleuritic Chest Pain, No Other Cardiovascular: No: Chest Pain, Palpitations, Orthopnea, Paroxysmal Noc. Dyspnea, Edema, Lt Headedness, Other Objective-Cardiology Exam Last Set of Vital Signs Vital Signs 08/19/17 06:55 FiO2 85 Capillary Refill : Less Than 3 SecondsLess Than 3 Seconds I&O Intake and Output 08/20/17 00:00 Intake Total 2705 ml Output Total 5075 ml Balance -2370 ml Intake Oral 2185 ml IV Total 520 ml Output Urine Total 5075 ml # Bowel Movements 1 General: Alert, Oriented X3, Cooperative HEENT: Atraumatic, PERRLA Neck: Supple Lungs: Normal Air Movement Heart: Regular Rate, Normal S1, Normal S2 Abdomen: Normal Bowel Sounds Extremities: No Clubbing, No Cyanosis Skin: No Rashes, Other (Cellulitis) Neuro: Normal Speech Results Lab Laboratory Tests 08/20/17 05:37 A/P-Cardiology Admission Diagnosis Shortness of breath Acute exacerbation of COPD Paroxysmal atrial fibrillation Cellulitis Assessment/Plan Shortness of breath, acute exacerbation of COPD, elevated BNP level, no previous history of heart failure, had a recent FELIPA with electrical cardioversion, responded well to diuretics. Continue with diuretics. Congestive heart failure, acute on chronic left ventricular diastolic dysfunction, normal systolic function. Continue on diuretics and monitor. Pleural effusion, COPD, obesity hypoventilation syndrome with severe pulmonary hypertension. Consult Dr. Jones. Recurrent hemoptysis, intolerant to anticoagulation, seen by staff internist office based only and gastroenterologists in [facility], underwent extensive workup, I'll try to obtain copy of the results. Consult Dr. Jones Paroxysmal atrial fibrillation, had recent FELIPA with cardioversion. Continue to monitor EKG at this time. Cellulitis, questionable shingles, Dr. oGmez was consulted, managed by primary care team Hypoxemia, has been using oxygen at home, refusing BiPAP. On x-rays liters oxygen Obstructive sleep apnea, intolerant to C Pap Obesity, BMI 57. History of peripheral arterial disease, underwent intervention by Dr. Rodriguez on her leg after an injury done about 10 years ago. Clinical Quality Measures DVT/VTE Risk/Contraindication: Risk Factor Score Per Nursin RFS Level Per Nursing on Admit: 4+=Very High CHANELLE FENG MD Aug 20, 2017 10:28
[2017-08-20 12:00] VITALS: BP 124/78
[2017-08-20 14:10] VITALS: BP 124/78
[2017-08-20] MEDS: HYDROcodone/APAP 7.5 MG/325 MG (LORTAB, LORCET PLUS) TABLET PO PRN (14:42)
== END 2017-08-20 14:55 | disposition hospice, home (50) | DRG 602 ==
LOC: EDUNIT# 17:09 → ER 17:10 → ICU 21:51 → 4TH 22:17
PROVIDERS: ADMIT Family Medicine; ATTEND Family Medicine
PROC: 0HBKXZX Excision of Right Lower Leg Skin, External Approach, Diagnostic (ICD-10-PCS; principal; 2017-08-15)
DX: L03.115 Cellulitis of right lower limb (principal); J96.01 Acute respiratory failure with hypoxia; I50.33 Acute on chronic diastolic (congestive) heart failure; J44.1 Chronic obstructive pulmonary disease with (acute) exacerbation; Z68.44 Body mass index [BMI] 60.0-69.9, adult; R04.2 Hemoptysis; E66.2 Morbid (severe) obesity with alveolar hypoventilation; L97.219 Non-pressure chronic ulcer of right calf with unspecified severity; Z66 Do not resuscitate; I11.0 Hypertensive heart disease with heart failure; I48.0 Paroxysmal atrial fibrillation; G47.33 Obstructive sleep apnea (adult) (pediatric); J30.2 Other seasonal allergic rhinitis; B02.9 Zoster without complications; N32.81 Overactive bladder; K21.9 Gastro-esophageal reflux disease without esophagitis; E87.6 Hypokalemia; I77.6 Arteritis, unspecified; I27.20 Pulmonary hypertension, unspecified; E78.5 Hyperlipidemia, unspecified; Z91.19 Patient's noncompliance with other medical treatment and regimen; Z87.891 Personal history of nicotine dependence; Z99.81 Dependence on supplemental oxygen; Z79.01 Long term (current) use of anticoagulants
CPT/HCPCS: 36415; 51702; 71045; 71046; 71275; 80048; 80053; 80202; 81000; 82805; 83605; 83735; 83880; 84100; 85007; 85025; 85027; 87040; 93005; 93306; 93970; 94640; 94660; 94664; 94760; 96365; 96375